=== PATIENT | female | born 1995 | race Caucasian/White ===

== ENCOUNTER 2019-10-07 10:25 | Outpatient (CLI) | payer OTHER, SELFPAY ==
[2019-10-07 10:30] VITALS: BMI 38.1
[2019-10-07 10:41] VITALS: BP 108/64; PULSE 93; RESP 17; TEMP 37.1
[2019-10-07] MEDS: acetaminophen 325 mg Tablet 650 MG PO (11:16)
[2019-10-07 11:18] VITALS: BP 106/62; PULSE 83
[2019-10-07 11:47] VITALS: BP 100/64; PULSE 76
[2019-10-07 12:17] VITALS: BP 106/64; PULSE 88
[2019-10-07 12:24] LABS: Bilirubin Urine Neg (NEGATIVE); Blood Urine Neg (Negative); Glucose Urine UA Norm (Normal); Ketones Urine Negative (Negative); Leukocyte Esterase Urine 2+ (Negative); Nitrate Urine Negative (Negative); Protein Urine Neg (Negative); Urine Appearance Hazy (CLEAR); Urine Color Yellow (Yellow); Urobilinogen Urine Norm (Negative); pH Urine 7 (5-7)
[2019-10-07 12:38] LABS: Amorphous Sediment Urine 2+; Bacteria Urine TRACE
[2019-10-07 12:39] LABS: Add Urine Culture? No
[2019-10-07 12:47] VITALS: BP 100/58; PULSE 72
[2019-10-07 13:05] VITALS: BP 100/58; PULSE 72; RESP 17; TEMP 37.1
== END 2019-10-07 13:05 | disposition home or self-care (01) ==
LOC: OPOB 10:37 → OBGYN 12:59 → OPOB 17:41
PROVIDERS: Family Provider Internal Medicine; PCP Internal Medicine; Visit Provider Obstetrics & Gynecology
DX: O26.899 Other specified pregnancy related conditions, unspecified trimester (principal); Z3A.00 Weeks of gestation of pregnancy not specified; R10.9 Unspecified abdominal pain
CPT/HCPCS: 81001; 99211

== ENCOUNTER → 2019-10-21 14:30 | Outpatient (BNVA) | payer OTHER, SELFPAY | PROVIDERS: Family Provider Internal Medicine; PCP Internal Medicine; Visit Provider Obstetrics & Gynecology | DX: Z01.89 Encounter for other specified special examinations (principal) | CPT/HCPCS: 84315 ==

== ENCOUNTER 2019-11-12 15:24 | Emergency (ER) | payer OTHER, SELFPAY ==
[2019-11-12 15:26] VITALS: BP 114/79; PULSE 93; RESP 18; TEMP 37.1; O2SAT 98; BMI 41.5
--- NOTE | 2019-11-12 15:30 | PC.NURSE ---
Patient reports that she has abdominal cramps and back pain. Patient states she has had some congestion. Patient reports that she has had some vomiting but that has occurred throughout her whole .
--- NOTE | 2019-11-12 15:32 | ED_ITS ---
Entered by Kamila Jean Baptiste, acting as scribe for Fito Cee DO HPI - General Adult General: Chief complaint: General Medical Stated complaint: cramps Time Seen by Provider: 11/12/19 15:35 History of Present Illness: HPI narrative: 24 yo female presents with cramping. Pt states that she is about 27 weeks . Comes in her primary complaint being cramping and back pain she denies any vaginal discharge she does come in with also with mild rhinorrhea and a little bit of cough cough is been nonproductive she denies any fever no dysuria urgency or frequency no nausea vomiting or diarrhea MD complaint: cramping Location: abdomen Radiation: non-radiation Severity: moderate Pain Consistency: constant Relieving factors: none Exacerbating factors: none Associated symptoms: Deny chest pain, dyspnea, malaise, nausea, rash or vomiting Review of Systems Const: Denies: fever, chills, body aches, change in appetite, fatigue or malaise ENMT: Reports: nasal discharge and nasal congestion; Denies: throat pain or ear pain Card: Denies: chest pain, edema, shortness of breath on exertion or shortness of breath when lying down Resp: Denies: shortness of breath, productive cough or non-productive cough GI: Denies: abdominal pain, nausea, vomiting, vomiting blood, coffee grounds in vomit, diarrhea, constipation, bloating, blood in stool or black tarry stool : Denies: flank pain, difficulty urinating, painful urination, urinary frequency, urinary urgency or vaginal discharge Skin/Breast: Denies: rash or itching [facility] ED PFSH: Social History (Updated 10/21/19 @ 14:39 by Cheyanne Randall RN) Smoking and tobacco status: never smoked Quit status (tobacco): has quit using tobacco Year quit tobacco: 05/2019 Former quit date comment: Cigarettes and vaping. Was smoking 1/2 packs/day. Started age 17. Smoking risk assessment/counseling performed?: Yes Alcohol intake: never Female Reproductive History: Para: 0 Spontaneous abortions: No Physical Exam Const: COMMON NORMALS: no apparent distress GENERAL APPEARANCE: cooperative and comfortable ORIENTATION/CONSCIOUSNESS: Yes awake, Yes oriented to person, Yes oriented to place and Yes oriented to time HENMT: COMMON NORMALS: normocephalic, head/scalp atraumatic, hearing grossly normal bilaterally, external ears normal, EAC's normal, TM's normal bilaterally, nasal mucous membranes and turbinates normal, moist oral mucous membranes and oropharynx normal HEAD & SCALP: normocephalic and atraumatic NOSE: nasal mucous membranes and turbinates normal EXTERNAL EAR: Yes external ears normal EXTERNAL AUDITORY CANAL: EAC's normal TYMPANIC MEMBRANE: TM's normal bilaterally Eye: COMMON NORMALS: PERRL, EOMs intact bilaterally, conjunctivae normal and no scleral icterus CONJUNCTIVA: Yes conjunctivae normal PUPIL: Yes PERRL Neck/C-Spine: COMMON NORMALS: full ROM, no lymphadenopathy, supple and no JVD Lymph: LYMPHATIC: no lymphadenopathy noted and no lymphedema noted Resp: COMMON NORMALS: normal respiratory effort, no retractions, no use of accessory muscles and clear to auscultation bilaterally AUSCULTATION: clear to auscultation bilaterally Cardio: COMMON NORMALS: no JVD, regular rate, regular rhythm and no murmurs RATE: regular rate RHYTHM: regular rhythm GI: COMMON NORMALS: soft to palpation and no hepatosplenomegaly AUSCULTATION: Yes normoactive bowel sounds PALPATION: Yes soft, No tender, No guarding and Yes no hepatosplenomegaly Extremity: COMMON NORMALS: normal to inspection, normal capillary refill, no clubbing, cyanosis or edema, no calf tenderness and no pedal edema Neuro: SENSORIUM/ORIENTATION: Yes oriented to person, Yes oriented to place and Yes oriented to time Skin: COMMON NORMALS: no rashes or lesions noted GENERAL SKIN EXAM: no rashes or lesions noted Course ED course: Patient does not have a fever her vitals are essentially normal and her exam is unremarkable. I think she may very well have a mild upper respiratory infection but has no indication that she has influenza. She is having considerable ongoing cramping and back pain at this point there is little we have to offer in the emergency room and she will be brought to the obstetrical department for evaluation. Vital Signs: Vital signs: Vital Signs Temperature 98.7 F 11/12/19 15:26 Pulse Rate 93 11/12/19 15:26 Respiratory Rate 18 11/12/19 15:26 Blood Pressure 114/79 11/12/19 15:26 Pulse Oximetry 98 11/12/19 15:26 Discharge Plan Discharge Patient Disposition: Home, Self-Care Clinical Impression: Pelvic cramping in antepartum period, Upper respiratory infection, viral, Nausea/vomiting in Condition: Stable Prescriptions: No Action prenat.vits,rosalva,[id number] Tablet 1 tab PO ONCE RF: 0 doxylamine-pyridoxine (vit B6) [Diclegis] 10-10 mg tablet,delayed release (DR/EC) 1 tab PO TID RF: 0 Pepcid 20 mg Tablet 20 mg PO DAILY RF: 0 Referrals: William Romo DO [Family Provider] - Activity Restrictions/Additional Instructions: And health information technologist will take you to the obstetrical department Coding Level of Care Code ED Structural Technician for Chg Fwd Exam Comprehensive The documentation recorded by the Markel david Kialy, accurately reflects the service I personally performed and the decisions made by , Fito Cee, DO
== END 2019-11-12 15:40 | disposition home or self-care (01) ==
LOC: ER 11-25 12:38
PROVIDERS: Emergency Provider Family Medicine; Family Provider Internal Medicine
DX: O26.892 Other specified pregnancy related conditions, second trimester (principal); R10.2 Pelvic and perineal pain; O21.2 Late vomiting of pregnancy; O99.512 Diseases of the respiratory system complicating pregnancy, second trimester; J06.9 Acute upper respiratory infection, unspecified; Z3A.27 27 weeks gestation of pregnancy; Z87.891 Personal history of nicotine dependence
CPT/HCPCS: 99281

== ENCOUNTER 2019-11-12 15:35 | Outpatient (CLI) | payer OTHER, SELFPAY ==
[2019-11-12] VITALS (9 sets, daily range): BP systolic 0–126; BP diastolic 0–77; PULSE 73–93; RESP 16; TEMP 36.8–37; O2SAT 97; BMI 34.9
[2019-11-12 17:38] LABS: Glucose Urine UA Norm (Normal); Ketones Urine 2+ (Negative); Protein Urine Neg (Negative); Urine Appearance Clear (CLEAR); Urine Color Yellow (Yellow); pH Urine 6 (5-7)
[2019-11-12 17:39] LABS: Bilirubin Urine Neg (NEGATIVE); Blood Urine Neg (Negative); Leukocyte Esterase Urine Negative (Negative); Nitrate Urine Negative (Negative); Urobilinogen Urine Norm (Negative)
[2019-11-12 17:40] LABS: Add Urine Culture? No; Bacteria Urine TRACE; Mucus Urine 2+; WBC Urine 0-4 /hpf (0-5)
[2019-11-12] MEDS: acetaminophen 500 mg Tablet 1000 MG PO (17:50)
== END 2019-11-12 18:35 | disposition home or self-care (01) ==
LOC: OPOB 16:06 → OBGYN 16:37 → OPOB 11-13 08:04
PROVIDERS: Family Provider Internal Medicine; Visit Provider Obstetrics & Gynecology
DX: O26.899 Other specified pregnancy related conditions, unspecified trimester (principal); Z3A.00 Weeks of gestation of pregnancy not specified; R10.9 Unspecified abdominal pain
CPT/HCPCS: 36415; 59025; 81001; 99211

== ENCOUNTER → 2019-11-17 15:44 | Outpatient (BNVA) | payer OTHER, SELFPAY | PROVIDERS: Family Provider Internal Medicine; Visit Provider Obstetrics & Gynecology | DX: Z34.00 Encounter for supervision of normal first pregnancy, unspecified trimester | CPT/HCPCS: 82950; 84315; 85027 ==

== ENCOUNTER → 2019-12-01 15:46 | Outpatient (BNVA) | payer OTHER, SELFPAY | PROVIDERS: Family Provider Internal Medicine; Visit Provider Obstetrics & Gynecology | DX: Z01.89 Encounter for other specified special examinations (principal) | CPT/HCPCS: 84315 ==

== ENCOUNTER → 2019-12-15 15:47 | Outpatient (BNVA) | payer OTHER, SELFPAY | PROVIDERS: Family Provider Internal Medicine; Visit Provider Obstetrics & Gynecology | DX: Z01.89 Encounter for other specified special examinations (principal) | CPT/HCPCS: 84315 ==

== ENCOUNTER → 2019-12-29 09:54 | Outpatient (BNVA) | payer OTHER, SELFPAY | PROVIDERS: Family Provider Internal Medicine; Visit Provider Obstetrics & Gynecology | DX: Z01.89 Encounter for other specified special examinations (principal) | CPT/HCPCS: 84315 ==

== ENCOUNTER → 2020-01-12 12:45 | Outpatient (BNVA) | payer OTHER, SELFPAY | PROVIDERS: Family Provider Internal Medicine; Visit Provider Obstetrics & Gynecology | DX: Z34.00 Encounter for supervision of normal first pregnancy, unspecified trimester (principal); Z34.03 Encounter for supervision of normal first pregnancy, third trimester | CPT/HCPCS: 84315; 87081 ==

== ENCOUNTER 2020-01-23 12:03 | Outpatient (CLI) | payer OTHER, SELFPAY ==
[2020-01-23] VITALS (9 sets, daily range): BP systolic 0–120; BP diastolic 0–81; PULSE 81–98; BMI 39.2
--- NOTE | 2020-01-23 12:53 | US_ITS ---
WS: [id number] US OB BPP wo NST 18910 REASON FOR EXAM: nO MOVEMENT FINDINGS: Biophysical profile is 88. Normal amounts of amniotic fluid tone movement and breathing is seen. heart rate 150 beats for minute. US/US OB BPP wo NST 51531 IMPRESSION: Biophysical profile 04/24 with a viable present.
== END 2020-01-23 14:17 | disposition home or self-care (01) ==
LOC: OPOB 12:07 → OBGYN 12:08
PROVIDERS: Family Provider Internal Medicine; Visit Provider Obstetrics & Gynecology
DX: O36.8190 Decreased fetal movements, unspecified trimester, not applicable or unspecified (principal); Z3A.00 Weeks of gestation of pregnancy not specified
CPT/HCPCS: 59025; 76819; 99211

== ENCOUNTER 2020-01-29 12:24 | Outpatient (CLI) | payer OTHER, SELFPAY ==
[2020-01-29] VITALS (9 sets, daily range): BP systolic 0–114; BP diastolic 0–75; PULSE 82–110; RESP 18; TEMP 36.8–36.9; BMI 39.1
== END 2020-01-29 15:10 | disposition home or self-care (01) ==
LOC: OPOB 12:30 → OBGYN 12:37
PROVIDERS: Visit Provider Obstetrics & Gynecology
DX: O26.899 Other specified pregnancy related conditions, unspecified trimester (principal); Z3A.00 Weeks of gestation of pregnancy not specified; R10.9 Unspecified abdominal pain
CPT/HCPCS: 59020; 99211

== ENCOUNTER 2020-02-06 17:16 | Inpatient (IN) | payer OTHER, SELFPAY ==
[2020-02-06] VITALS (61 sets, daily range): BP systolic 0–155; BP diastolic 0–96; PULSE 55–130; RESP 22; TEMP 36.4; O2SAT 80–100; BMI 39.1
[2020-02-06] MEDS: fentaNYL 50 mcg/mL INJ 2mL IV (18:32)
[2020-02-06] MEDS: lactated ringers 1,000 ML 999 ML IV (18:42)
[2020-02-06 19:06] LABS: Basophils % 0.3 %; Eosinophils % 0.3 %; Hematocrit 36.9 % (37.0-47.0); Hemoglobin 12.1 g/dL (11.5-15.3); Lymphocytes # 2.2 10^3/uL (0.8-4.8); Lymphocytes % 20.2 %; Mean Corpuscular HGB Conc 32.8 g/dL (30.0-36.0); Mean Corpuscular Hemoglobin 28.9 pg (28.0-34.0); Mean Corpuscular Volume 88.1 fL (81-99); Mean Platelet Volume 10.7 fL (7.4-10.4); Monocytes # 0.9 10^3/uL (0.2-0.9); Neutrophils # 7.7 10^3/uL (1.8-7.7); Neutrophils % 70.9 %; Nucleated Red Blood Cells % 0 %; Platelet Count 147 10^3/cmm (130-400); Red Blood Count 4.19 10^6/uL (4.1-5.3); Red Cell Distribution Width 14.5 % (12.1-15.1); White Blood Count 10.8 10^3/uL (4.0-10.0)
[2020-02-06 19:32] LABS: Nitrazine Paper, PH Positive
--- NOTE | 2020-02-06 19:57 | P.ANESASSM_ITS ---
Pre-Anesthetic Assessment Pre-Anesthetic Assessment: Height/Weight: Height 1.55 m Weight 93.894 kg Temp Pulse Resp BP 97.6 F 72 22 H 136/79 02/06/20 17:37 02/06/20 19:53 02/06/20 18:32 02/06/20 19:53 Preop Diagnosis: labor Proposed Procedure: epi Was Beta Chandrakant taken within 24 hours: N/A Last Intake: 12:00 Social: Social History: No alcohol and No tobacco Exam: Pre-Anes Outpt Exam: alert, oriented x 3, clear to auscultation bilaterally and regular rate & rhythm Airway: Submandibular: WNL Cervical ROM: WNL MP: 2 Pulmonary: Pulmonary: None reported CV/HEM: CV/HEM: None reported : : None reported Hepatic: Hepatic: None reported GI: GI: GERD Metabolic: Metabolic: None reported Musc/skel: Musc/skel: Lower Back Pain (Hx slipped disc in back back pain wit h . NO numbness or tingling) Neuropsych: Neuropsych: None reported Anesthetic Plan: ASA status: 2 Anesthesia: Anesthesia Evaluation and Regional (specify below) Meds/Allergies Current Medications: Current Medications Generic Name Dose Route Start Last Admin Trade Name Freq PRN Reason Stop Dose Admin Fentanyl 25 - 100 mcg 02/06/20 18:01 02/06/20 18:32 Sublimaze IV 25 mcg Q1H PRN Administration SEVERE PAIN Lactated Ringer's 1,000 mls @ 999 m ls/hr 02/06/20 18:01 02/06/20 18:42 Lactated Ringers IV 999 mls/hr .Q1H1M PRN Administration BLEEDING PFSH Anesthesia PFSH: Surgical History S/P arthroscopy of knee (~11/2017) Meniscal repair of the right knee S/P wisdom tooth extraction (~2012) Performed in [place], [place]. Family History Grandmother Breast cancer maternal great Hypertension maternal Father Diabetes Hypertension Grandfather Diabetes maternal Stroke maternal Heart disease paternal Hypercholesteremia maternal Family/Other Stroke maternal uncle Heart disease maternal uncle Mother Hypercholesteremia Hypertension Diabetes Social History Smoking and tobacco status: former smoker Quit status (tobacco): has quit using tobacco Year quit tobacco: 05/2019 Former quit date comment: Cigarettes and vaping. Was smoking 1/2 packs/day. Started age 17. Alcohol intake: never Female Reproductive History: : 1 Para: 0 Spontaneous abortions: No Data Anesthesia CBC & Chem 7: 02/06/20 17:55 Other Labs: Laboratory Results - last 48 hr 02/06/20 17:55 WBC 10.8 H RBC 4.19 Hgb 12.1 Hct 36.9 L MCV 88.1 MCH 28.9 MCHC 32.8 RDW 14.5 Plt Count 147 MPV 10.7 H Neut % (Auto) 70.9 Lymph % (Auto) 20.2 [place] % (Auto) 8.0 Eos % (Auto) 0.3 Baso % (Auto) 0.3 Neut # (Auto) 7.7 Lymph # (Auto) 2.2 [place] # (Auto) 0.9 Eos # (Auto) 0.0 Baso # (Auto) 0.0 Nucleated RBC % (auto) 0 Nucleated RBCs # 0.0 Cardiac Studies: No Data to Display
--- NOTE | 2020-02-06 20:33 | ANES.PROC ---
Anesthesia Procedures Procedure/Date: 02/06/20 Epidural Epidural: Time Out Performed: Yes Consents Signed: Procedure Consent and NPO Consent Consent: requested by attending/covering physician, from patient, risks and benefits reviewed and patient agrees to proceed Lumbar Level: L3-L4 Epidural position: sitting Epidural procedure: sterile prep of area (betadine), 1% lidocaine to numb the area (3ml), 18 g needle, neg for paresthesia, test dose given, 1.5% xylocaine 1:200k epi (5ml), 0.2% Ropivacaine bolus ml (5ml), placed PCEA, no systemic response, sterile dressing applied, L.U.D. no apparent complications and 0.2% Ropiavacaine @ mls/hr (10ml/hr)
[2020-02-06] MEDS: ondansetron 2 mg/ML SDV 2 mL 4 MG IVP (21:00)
[2020-02-07] VITALS (30 sets, daily range): BP systolic 0–155; BP diastolic 0–86; PULSE 59–100; RESP 16–20; TEMP 36.6–36.8; O2SAT 98
--- NOTE | 2020-02-07 04:08 | PM.DELIVERY ---
Delivery Note: Date of delivery: February 07, 2020 Pre-delivery diagnoses: 1. Term at 39-5/7 weeks gestation. 2. Anemia affecting in third trimester 3. Obesity affecting in third trimester Post-delivery diagnoses: 1. Term at 39-5/7 weeks gestation -delivered. 2. Anemia affecting - delivered 3. Obesity affecting - delivered 4. Viable male . Procedure: Spontaneous vaginal delivery Op report anesthesia: Epidural Delivering Physician: Phillip Davis MD Estimated blood loss (mL): 150 Pre-Delivery Course: Patient is a 24-year-old white female 1, para 0 with an unknown LMP and an EDC of 02/09/2020 based on a 7-week ultrasound, which placed her at 39-4/7 weeks gestation at the time of admission. Patient presented to labor and delivery at 17:15 on 02/06/2020 with a complaint of leaking fluid, spotting, and contractions. She reported that she had been having contractions off and on through the day but they had gotten stronger in the afternoon. At approximately 16:50 she reported having a gush of fluid. Contractions strengthened after that. On evaluation in L&D she was found to be grossly ruptured. Cervix was initially 90% effaced, 3 to 4 cm dilated, and a -2 station per the nurse. Patient was admitted. She continued to contract regularly and made cervical change. By 21:00 she was 5 cm dilated. She had epidural placed. At 01:40, she had progressed to 7 cm dilation. She was found to be completely dilated at 02:20. monitoring was reassuring during the labor course. Delivery: She started pushing at 02:49 and delivered at 03:11 as a spontaneous vaginal delivery of an occiput anterior male over an intact perineum under epidural anesthesia. Following delivery of the infant's head, no loops of nuchal cord were noted. The rest of the infant delivered atraumatically with the right shoulder anterior. was placed on the mother's abdomen and the cord was clamped. It was cut by the reported father of the baby. The baby was not initially crying and was taken to the warmer by the nurses for initial assessment. The baby started crying on its own but was requiring supplemental oxygen. It was transferred to the nursery. Cord blood was obtained. Pitocin bolus was started. Placenta delivered intact by simple expression at 03:29. Cervix and vagina were palpated and noted to be intact. The labia were inspected and noted to be intact except for superficial abrasions; superficial right periurethral laceration which was hemostatic and required no repair; and a first-degree midline hymenal ring laceration which was initially bleeding with the bleeding coming under control with direct pressure and did not require repair. Findings 1. Viable male infant weighing 8 pounds 6 ounces (3795 g) with a length of 20 inches and Apgars of 4 at 1 minute and 8 at 5 minutes. 2. Three-vessel cord with no loops of nuchal cord noted. 3. Normal-appearing placenta with a central cord insertion. Post-Delivery Status: Mother was left to recover in satisfactory condition. Infant was transferred to the nursery. Coding Level of Care Code Acute Interventional Sale Consultant for Jamil Hagan
[2020-02-07] MEDS: TRAMadol 50 mg Tablet PO (04:53)
[2020-02-07] MEDS: prenatal vitamin Capsule 1 CAP PO (08:55)
[2020-02-07] MEDS: famotidine 20 mg Tablet PO ×2 (08:55→18:44)
[2020-02-07] MEDS: docusate sodium 100 mg Capsule PO ×2 (08:56→18:44)
[2020-02-08] MEDS: benzocaine-menthol 78 gm Canister 1 SPRAY TOPICAL (00:05)
[2020-02-08 03:30] VITALS: BP 109/69; PULSE 78; RESP 18; TEMP 36.8; O2SAT 98
[2020-02-08 06:34] LABS: Hematocrit 35.5 % (37.0-47.0); Hemoglobin 10.8 g/dL (11.5-15.3); Mean Corpuscular HGB Conc 30.4 g/dL (30.0-36.0); Mean Corpuscular Hemoglobin 29.9 pg (28.0-34.0); Mean Corpuscular Volume 98.3 fL (81-99); Mean Platelet Volume 11.1 fL (7.4-10.4); Platelet Count 135 10^3/cmm (130-400); Red Blood Count 3.61 10^6/uL (4.1-5.3); Red Cell Distribution Width 14.9 % (12.1-15.1); White Blood Count 13.5 10^3/uL (4.0-10.0)
[2020-02-08] MEDS: docusate sodium 100 mg Capsule PO (08:05)
[2020-02-08] MEDS: famotidine 20 mg Tablet PO (08:05)
[2020-02-08] MEDS: prenatal vitamin Capsule 1 CAP PO (08:05)
--- NOTE | 2020-02-08 11:04 | PM.DCS ---
Discharge Providers Date of Admission: 02/06/20 17:16 Date of Discharge: February 08, 2020 Attending Provider at Admission: Phillip Davis MD Attending Provider at Discharge: Phillip Davis MD Diagnoses at Discharge Discharge Diagnosis (1) Term delivered: Status: Acute (2) Anemia during , delivered, current hospitalization: Status: Acute Reason for Visit Reason for Visit: Reason For Visit: vaginal discharge Hospital Course Hospital Course: Patient is a 24-year-old white female 1, para 0 with an unknown LMP and an EDC of 02/09/2020 based on a 7-week ultrasound, which placed her at 39-4/7 weeks gestation at the time of admission. She presented to L&D on 02/06/2020 at 1715 with a complaint of leaking of fluid, spotting, and contractions. She reported having a gush of fluid at 16:50. She had been having contractions prior to this but they worsened afterwards. On presentation to L&D she was noted to be grossly ruptured and was michael regularly. She was 3 to 4 cm dilated and 90% effaced. She continued to progress on her own and had epidural placed. She was found to be completely dilated at 02:20 on 02/08/2020. She started pushing at 02:49 and delivered at 03:11 as a spontaneous vaginal delivery of an occiput anterior male infant over an intact perineum under epidural anesthesia. The baby weighed 8 pounds 6 ounces (3795 g) with a length of 20 inches and Apgars of 4 at 1 minute and 8 at 5 minutes. She did not require any vaginal repair. Mother and infant did well following delivery. DAY 1 Patient reports doing well. She states that her pain is been well controlled. She denied any lightheadedness or dizziness with ambulation. She denied any shortness of breath or chest pains. She reports tolerating a regular diet without nausea or vomiting. She denies any problems with urination. She states that her bleeding has slowed. She states that she has a mild headache that started after delivery. She states it is not interfering with getting up out of bed and moving around. It is better, however, when she lies down. Physical Exam: See below Plan: Discussed with patient increasing caffeine and fluid intake. Even though the headache is mildly position related I do not believe from what she is describing that is likely to be a spinal headache. However the caffeine and fluid intake should help anyway. Since patient is otherwise doing well, plan to discharge to home today. Discharge instructions discussed with patient. Patient is to call the office to schedule a checkup in approximately 6 weeks. Physical Exam Const: COMMON NORMALS: no acute distress, average body habitus, alert and well nourished GENERAL APPEARANCE: well developed ORIENTATION/CONSCIOUSNESS: Yes oriented to person, Yes oriented to place and Yes oriented to time Resp: COMMON NORMALS: normal respiratory effort and clear to auscultation bilaterally AUSCULTATION: clear to auscultation bilaterally Cardio: COMMON NORMALS: regular rate, regular rhythm, No gallops present (Cardio) and No rub (Cardio) RATE: regular rate RHYTHM: regular rhythm GI: COMMON NORMALS: Soft to palpation, non-tender, No hepatosplenomegaly present and no masses (Except for nontender uterus approximately 2 fingerbreadths below the umbilicus) AUSCULTATION: Yes normoactive bowel sounds PALPATION: Yes Soft to palpation, Yes No hepatosplenomegaly present and No Hernia present : EXTERNAL FEMALE EXAM: No Hernia present Extremity: COMMON NORMALS: no calf tenderness GENERAL: Yes edema (Trace lower extremity edema.) Neuro: SENSORIUM/ORIENTATION: Yes alert, Yes oriented to person, Yes oriented to place and Yes oriented to time Psych: COMMON NORMALS: normal affect MOOD & AFFECT: Yes euthymic mood Discharge Data Data Completed and Pending: Labs from last 24 hours 02/08/20 06:25 WBC 13.5 H RBC 3.61 L Hgb 10.8 L Hct 35.5 L MCV 98.3 MCH 29.9 MCHC 30.4 RDW 14.9 Plt Count 135 MPV 11.1 H Vitals: Last Vital Signs Temp 98.2 F 02/08/20 03:30 Pulse 78 02/08/20 03:30 Resp 18 02/08/20 03:30 BP 109/69 02/08/20 03:30 Pulse Ox 98 02/08/20 03:30 Discharge Plan Discharge Patient Disposition: Home, Self-Care Condition: Stable Prescriptions: New ibuprofen 800 mg Tablet 800 mg PO TID PRN (Reason: pain) Qty: 30 RF: 0 Continued folic acid 0.8 mg capsule 0.8 mg PO DAILY RF: 0 ferrous sulfate 325 mg (65 mg iron) tablet 325 mg PO DAILY Qty: 30 RF: 4 Discontinued famotidine [Pepcid] 20 mg Tablet 20 mg PO BID RF: 0 Discharge Orders: Discharge Order (Routine); Ordered 02/08/20 Ordered By: Phillip Davis Referrals: Phillip Davis MD [Physician] - 6 Weeks Discharge Diet: Regular Discharge Activity: Resume usual activity Patient Instructions: OB Vaginal Deliveries - [facility] Discharge Attestations Time Spent in Discharge Care*: less than 30 min Quality Metrics Clinical Quality Measures During this hospital stay, did patient experience: None Coding Level of Care Code Acute Project Management Professional for Chg Fwd Diagnoses Term delivered O80 Anemia during , delivered, current hospitalization O99.02
[2020-02-08 15:00] VITALS: BP 108/71; PULSE 88; RESP 18; TEMP 36.8; O2SAT 97
== END 2020-02-08 15:00 | disposition home or self-care (01) | DRG 807 ==
LOC: OPOB 17:34 → OBGYN 17:36
PROVIDERS: Admitting Provider Obstetrics & Gynecology; Visit Provider Obstetrics & Gynecology
DX: O99.02 Anemia complicating childbirth (principal); Z37.0 Single live birth; D64.9 Anemia, unspecified; Z3A.39 39 weeks gestation of pregnancy; O99.214 Obesity complicating childbirth; O70.0 First degree perineal laceration during delivery
CPT/HCPCS: 12345; 36415; 51702; 59025; 59409; 83986; 85025; 85027; 96374; 96375; 99211; J2405; J3010

== ENCOUNTER → 2020-11-17 14:02 | Outpatient (BNVA) | payer OTHER, MEDICAID, SELFPAY | PROVIDERS: Visit Provider Obstetrics & Gynecology | DX: O26.899 Other specified pregnancy related conditions, unspecified trimester (principal); R35.0 Frequency of micturition | CPT/HCPCS: 81000; 82950; 87086 ==

== ENCOUNTER → 2020-12-29 14:22 | Outpatient (BNVA) | payer OTHER, MEDICAID, SELFPAY | PROVIDERS: Visit Provider Obstetrics & Gynecology | DX: O99.212 Obesity complicating pregnancy, second trimester (principal); O44.20 Partial placenta previa NOS or without hemorrhage, unspecified trimester; O09.899 Supervision of other high risk pregnancies, unspecified trimester; K21.9 Gastro-esophageal reflux disease without esophagitis; L08.9 Local infection of the skin and subcutaneous tissue, unspecified; Z78.9 Other specified health status | CPT/HCPCS: 84315; 87086 ==

== ENCOUNTER → 2021-01-26 09:11 | Outpatient (BNVA) | payer OTHER, MEDICAID, SELFPAY | PROVIDERS: Visit Provider Obstetrics & Gynecology | DX: O44.20 Partial placenta previa NOS or without hemorrhage, unspecified trimester (principal); O99.212 Obesity complicating pregnancy, second trimester; E66.9 Obesity, unspecified; O09.899 Supervision of other high risk pregnancies, unspecified trimester; K21.9 Gastro-esophageal reflux disease without esophagitis; L08.9 Local infection of the skin and subcutaneous tissue, unspecified; Z78.9 Other specified health status; Z3A.00 Weeks of gestation of pregnancy not specified | CPT/HCPCS: 82950; 84315; 85025; 86762 ==

== ENCOUNTER 2021-03-23 05:37 | Outpatient (CLI) | payer OTHER, MEDICAID, SELFPAY ==
[2021-03-23 05:48] VITALS: BP 117/70; PULSE 116; TEMP 36.2
[2021-03-23 06:26] VITALS: TEMP 36.7
[2021-03-23 06:27] VITALS: BP 103/67; PULSE 93
== END 2021-03-23 06:30 | disposition home or self-care (01) ==
LOC: OPOB 05:41 → OBGYN 05:43
PROVIDERS: Visit Provider Obstetrics & Gynecology
DX: O26.899 Other specified pregnancy related conditions, unspecified trimester (principal); Z3A.00 Weeks of gestation of pregnancy not specified; R10.9 Unspecified abdominal pain
CPT/HCPCS: 59025; 83986; 99211

== ENCOUNTER → 2021-03-28 15:49 | Outpatient (BNVA) | payer OTHER, MEDICAID, SELFPAY | PROVIDERS: Visit Provider Obstetrics & Gynecology | DX: Z34.90 Encounter for supervision of normal pregnancy, unspecified, unspecified trimester (principal); K21.9 Gastro-esophageal reflux disease without esophagitis; Z78.9 Other specified health status; L08.9 Local infection of the skin and subcutaneous tissue, unspecified; R12 Heartburn | CPT/HCPCS: 84315; 87081 ==

== ENCOUNTER 2021-04-05 03:39 | Outpatient (CLI) | payer OTHER, MEDICAID, SELFPAY ==
[2021-04-05 04:18] VITALS: BMI 38.4
[2021-04-05 04:23] VITALS: BP 104/65; PULSE 100
--- NOTE | 2021-04-05 07:48 | P.PCN_ITS ---
Procedure/Consent Procedure Narrative: NONSTRESS TEST: Place of test: [facility]-L&D Indication: 25-year-old 2 para 1-0-0-1, contraction and vaginal discharge Date and time of test:, 04/05/2021-4:30 AM Baseline: 135 Variability: Moderate variability Accelerations: Accelerations present Decelerations: No decelerations Tocometry: No contractions INTERPRETATION: NST reactive, continue kick counts
== END 2021-04-05 04:55 | disposition home or self-care (01) ==
LOC: OPOB 04:02 → OBGYN 04:03
PROVIDERS: Visit Provider Obstetrics & Gynecology
DX: O26.899 Other specified pregnancy related conditions, unspecified trimester (principal); Z3A.00 Weeks of gestation of pregnancy not specified; N89.8 Other specified noninflammatory disorders of vagina
CPT/HCPCS: 59025; 83986; 99211

== ENCOUNTER 2021-04-05 08:47 | Inpatient (IN) | payer OTHER, MEDICAID, SELFPAY ==
[2021-04-05] VITALS (35 sets, daily range): BP systolic 97–144; BP diastolic 53–86; PULSE 63–100; RESP 17; TEMP 36.4–36.6; O2SAT 100
[2021-04-05 08:32] LABS: Nitrazine Paper, PH Inconclusive
[2021-04-05 08:34] LABS: Actim Prom Positive
[2021-04-05 10:20] LABS: Basophils # 0.1 10^3/uL (0.0-0.1); Basophils % 0.5 %; Eosinophils % 0.2 %; Hematocrit 35.6 % (37.0-47.0); Hemoglobin 11.3 g/dL (11.5-15.3); Lymphocytes # 2.6 10^3/uL (0.8-4.8); Lymphocytes % 23.6 %; Mean Corpuscular HGB Conc 31.7 g/dL (30.0-36.0); Mean Corpuscular Hemoglobin 28.3 pg (28.0-34.0); Mean Corpuscular Volume 89.2 fL (81-99); Mean Platelet Volume 10.3 fL (7.4-10.4); Monocytes % 8.8 %; Neutrophils # 7.27 10^3/uL (1.8-7.7); Neutrophils % 66.5 %; Nucleated Red Blood Cells % 0 %; Platelet Count 162 10^3/cmm (130-400); Red Blood Count 3.99 10^6/uL (4.1-5.3); Red Cell Distribution Width 14.1 % (12.1-15.1); White Blood Count 10.9 10^3/uL (4.0-10.0)
[2021-04-05] MEDS: fentaNYL 50 mcg/mL INJ 2mL IVP (10:25)
[2021-04-05] MEDS: dextrose 5%-lactated ringers 1,000 ML 125 ML IV (12:33)
[2021-04-05] MEDS: oxytocin 30 UNIT/500 ML BAG IV (12:34)
[2021-04-05] MEDS: lactated ringers 1,000 ML 999 ML IV ×2 (13:00→14:02)
[2021-04-05] MEDS: ondansetron 2 mg/ML SDV 2 mL 4 MG IVP (13:50)
--- NOTE | 2021-04-05 14:40 | P.ANESASSM_ITS ---
Pre-Anesthetic Assessment Pre-Anesthetic Assessment: Height/Weight: Height 1.57 m Weight 98.883 kg Temp Pulse Resp BP Pulse Ox 97.5 F L 86 17 115/78 100 04/05/21 07:32 04/05/21 14:20 04/05/21 12:21 04/05/21 13:28 04/05/21 14:20 Preop Diagnosis: labor Proposed Procedure: epidural Familial anesthetic complications: none Last intake: ice chips Social: Social History: No alcohol and No tobacco Exam: Pre-Anes Outpt Exam: alert, oriented x 3, clear to auscultation bilaterally and regular rate & rhythm Airway: Cervical ROM: WNL MP: 2 Dentition: Full GI: GI: GERD Metabolic: Metabolic: Morbid obesity Anesthetic Plan: ASA status: 2 Anesthesia: Regional (specify below) (epidu ral) Risk of > 500 ml blood loss (7ml/kg in children): Yes, adequate IV acces s and fluids planned Other Pertinent Information: partial placenta previa Meds/Allergies Current Medications: Current Medications Generic Name Dose Route Start Last Admin Trade Name Joelq PRN Reason Stop Dose Admin Fentanyl 25 - 100 mcg 04/05/21 09:47 04/05/21 10:25 Fentanyl 50 Mcg/ Ml Inj 2ml IVP 50 mcg Q1H PRN Administration SEVERE PAIN Dextrose/Lactated Ringer's 1,000 mls @ 125 m ls/hr 04/05/21 08:45 04/05/21 12:33 Dextrose 5%-Lact ated Ringers IV 125 mls/hr .Q8H BRITTNI Administration Oxytocin 30 unit in 500 ml s @ 1 mls/hr 04/05/21 12:15 04/05/21 12:34 Pitocin IV 1 milliunit/min .Q24H RBITTNI 1 mls/hr Administration Protocol 1 MILLIUNIT/MIN Ondansetron HCl 4 mg 04/05/21 08:45 04/05/21 13:50 Ondansetron 2 Mg /Ml Sdv 2 Ml IVP 4 mg Q4H PRN Administration NAUSEA AND VOMITI NG PFSH Anesthesia PFSH: Medical History Blood type A+ No pertinent past medical history neghx:htn,dm,thyroid,dvt/pe,herpes Denies past partner herpes hx PCP: none Obesity Skin infection Surgical History S/P arthroscopy of knee (~11/2017) Meniscal repair of the right knee S/P wisdom tooth extraction (~2012) Performed in [place], [place]. Family History Grandmother Breast cancer maternal great Hypertension maternal Father Diabetes Hypertension Grandfather Diabetes maternal Stroke maternal Heart disease paternal Hypercholesteremia maternal Family/Other Stroke maternal uncle Heart disease maternal uncle Mother Hypercholesteremia Hypertension Diabetes Social History Smoking and tobacco status: never smoked Alcohol intake: never Female Reproductive History: : 2 Para: 0 Spontaneous abortions: No Data Anesthesia CBC & Chem 7: 04/05/21 09:49 Other Labs: Laboratory Results - last 48 hr 04/05/21 04/05/21 08:10 09:49 WBC 10.9 H RBC 3.99 L Hgb 11.3 L Hct 35.6 L MCV 89.2 MCH 28.3 MCHC 31.7 RDW 14.1 Plt Count 162 MPV 10.3 Neut % (Auto) 66.5 Lymph % (Auto) 23.6 [place] % (Auto) 8.8 Eos % (Auto) 0.2 Baso % (Auto) 0.5 Neut # (Auto) 7.27 Lymph # (Auto) 2.6 [place] # (Auto) 1.0 H Eos # (Auto) 0.0 Baso # (Auto) 0.1 Nucleated RBC % (auto) 0 Nucleated RBCs # 0.0 Insulin-like GF I Positive Cardiac Studies: No Data to Display Anesthesia Procedures Epidural: Time Out Performed: Yes Consents Signed: Procedure Consent, NPO Consent and No Consent Needed Consent: requested by attending/covering physician, from patient, risks and benefits reviewed and patient agrees to proceed Lumbar Level: L3-L4 Epidural position: sitting Epidural procedure: sterile prep of area, 1% lidocaine to numb the area, 18 g needle, negative for paresthesia passed, neg for paresthesia, test dose given, 1.5% xylocaine 1:200k epi (5 cc divide dose), 0.2% Ropivacaine bolus ml (5 cc), placed PCEA, no systemic response, sterile dressing applied, L.U.D. no apparent complications and 0.2% Ropiavacaine @ mls/hr (10) Additional Comments: Bleeding GREGORIO at 5.5 cm, threaded to 12 cm
--- NOTE | 2021-04-05 16:05 | PC.NURSE ---
Pt stated to Can I AMA out due to not having childcare for other child at home.
--- NOTE | 2021-04-05 16:09 | PM.DELIVERY ---
Delivery Note: Date of delivery: April 05, 2021 - PRE-DELIVERY DIAGNOSIS: 25-year-old 2 para 1-0-0-1 at 38 weeks and 1 day gestation Early labor, spontaneous rupture of membranes Protracted labor GBS negative Covid unknown Acid reflux in POST-DELIVERY DIAGNOSIS: Vaginal delivery on 04/05/2021 PROCEDURE: Vaginal delivery on 04/05/2021 ANESTHESIA: Epidural anesthesia DELIVERING PHYSICIAN: Veda Ford FACOG PRE-DELIVERY COURSE: Ms. Phillip is a 35-year-old 2 para 1-0-0-1 at 38 weeks and 1 day who presented to labor and delivery at 3 AM with reports of possible leaking of fluid. Exam done at that time showed that she was 3 cm, 60% and -3 station with intact membranes and nitrazine was negative. She was discharged home. She states that at 6 AM she felt a bigger gush of fluid and felt for sure her water was broken and returned back for evaluation. Her exam was more wet and no membranes were identified at this exam and nitrazine was inconclusive but active problems positive and as a result she was admitted to labor and delivery. She also reported having contractions every 4 to 5 minutes that were starting to get more painful. On initial evaluation she was 3 cm 60% and -3 station unchanged from earlier that evening however on observation she made cervical change and was 4 to 5 cm 2 to 3 hours later. She then made no further cervical change person 2 more hours and was started on Pitocin for augmentation of labor as her contractions spaced out to every 5 to 6 cm. Pitocin was titrated to a maximum of 7 mIU and with this she grew uncomfortable and desired an epidural. She was GBS negative and as she was Covid negative she was Covid swab. She was given IV pain medication until she had an epidural. She was pretty uncomfortable and at about 2 PM was noted to be 6 cm, 70 to 80% and -2 station. Internal monitor was placed as patient was unable to stay still for external monitoring. Epidural was placed shortly after this and she was a lot more comfortable. tracing was category 1 and she made rapid cervical change after this and was fully dilated at 3:34 PM and had the urge to push. tracing started to show deep variables once she was fully dilated and she was making rapid descent of the head. DELIVERY NOTE: She was set up in lithotomy position and was pushing effectively. She was noted to be +3 station and continued pushing well. The head delivered in JOSUE position, no nuchal cord was present. The shoulders and rest of the body followed with her next push. The baby's mouth and nose were suctioned and the baby was placed on the mother's belly. Once cord pulsations stopped the cord was clamped and cut. The placenta delivered spontaneously intact with membranes and was discarded. The fundus was noted to be firm and well contracted. The vagina and cervix were inspected and no cervical or sulcal lacerations were noted. The perineum was intact. Small superficial abrasion which was hemostatic and did not need repair. Baby boy, Jason born at 3:49 PM on 04[birth year]2021 with 9/9, weighing 6 pounds 14 ounces, 3110 g, 19-1/4 inches long. Placenta was delivered spontaneously intact with membranes at 3:53 PM. Cotyledons were intact , centrally inserted umbilical cord with 3 vessels noted. Estimated blood loss 150 mL. Complications-none, both baby and mother were left to recover in a stable condition This documentation was created by [employer] bridge maintenance worker software (known for inherent bridge maintenance worker error). Every effort was made to assure accuracy of bridge maintenance worker. Any obvious errors or omissions should be clarified with the author of the document. Coding Level of Care Code Acute Property Insurance Inspector for Jamil Hagan
--- NOTE | 2021-04-05 17:30 | PC.NURSE ---
this technical writer and editor asked Did I hear you ask if you may AMA out of here? , pt replied I don't have child nurse for my other child at home. We don't have anyone to watch him. This nurse educated pt of bleeding precautions such as a sudden gush of blood down both legs to return to ER immediately, then proceeded to educate pt of blood clots bigger than a golf ball return to ER immediately. Pt stated I will do that if that happens.
[2021-04-05] MEDS: docusate sodium 100 mg Capsule PO (18:43)
--- NOTE | 2021-04-05 20:40 | PC.NURSE ---
Advised Patient to call [facility] to schedule 6 week follow-up appointment tomorrow with Dr Ford.
[2021-04-06 14:07] LABS: Coronavirus Test Green County Not Detected
== END 2021-04-05 20:40 | disposition left against medical advice (07) | DRG 807 ==
LOC: OPOB 08:47 → OBGYN 08:47
PROVIDERS: Admitting Provider Obstetrics & Gynecology; Visit Provider Obstetrics & Gynecology
DX: O99.62 Diseases of the digestive system complicating childbirth (principal); Z37.0 Single live birth; K21.9 Gastro-esophageal reflux disease without esophagitis; O99.214 Obesity complicating childbirth; E66.01 Morbid (severe) obesity due to excess calories; Z3A.38 38 weeks gestation of pregnancy; Z53.29 Procedure and treatment not carried out because of patient's decision for other reasons
CPT/HCPCS: 36415; 59025; 59409; 83986; 84112; 85025; 87635; 96374; 96375; 99211; J2405; J2795; J3010

== ENCOUNTER → 2021-06-24 14:04 | Outpatient (BNVA) | payer OTHER, MEDICAID, SELFPAY | PROVIDERS: Visit Provider Obstetrics & Gynecology | DX: N89.8 Other specified noninflammatory disorders of vagina (principal) | CPT/HCPCS: 87481; 87512; 87798; 87799 ==

== ENCOUNTER → 2022-08-04 16:05 | Outpatient (BNVA) | payer OTHER, BC, MEDICAID, SELFPAY | PROVIDERS: Visit Provider Emergency Medicine | DX: J02.9 Acute pharyngitis, unspecified (principal) | CPT/HCPCS: 87071; 87880 ==

== ENCOUNTER → 2023-07-31 12:46 | Outpatient (BNVA) | payer OTHER, SELFPAY | PROVIDERS: Visit Provider Registered Nurse Neonatal Intensive Care | DX: J02.9 Acute pharyngitis, unspecified (principal) | CPT/HCPCS: 87880 ==

== ENCOUNTER → 2023-10-25 13:28 | Outpatient (BNVA) | payer OTHER, SELFPAY | PROVIDERS: Visit Provider Nurse Practitioner Women's Health | DX: Z32.00 Encounter for pregnancy test, result unknown (principal) | CPT/HCPCS: 81025 ==

== ENCOUNTER → 2023-10-30 12:29 | Outpatient (BNVA) | payer OTHER, SELFPAY | PROVIDERS: Visit Provider Nurse Practitioner Women's Health | DX: Z36.87 Encounter for antenatal screening for uncertain dates (principal); N83.291 Other ovarian cyst, right side | CPT/HCPCS: 76801 ==

== ENCOUNTER → 2023-11-03 18:20 | Outpatient (BNVA) | payer OTHER, SELFPAY | PROVIDERS: Visit Provider Emergency Medicine | DX: R11.2 Nausea with vomiting, unspecified (principal) | CPT/HCPCS: 87400 ==

== ENCOUNTER 2023-11-05 09:08 | Emergency (ER) | payer OTHER, SELFPAY ==
[2023-11-05 09:27] VITALS: BP 106/75; PULSE 102; RESP 16; TEMP 36.7; O2SAT 99; BMI 38.4
--- NOTE | 2023-11-05 10:06 | W.ED.NAVMDI ---
HPI - Nausea/Vomiting/Diarrhea General: Chief complaint: Nausea/Vomiting/Diarrhea Stated complaint: 10 weeks preg, n,v,bathroom trouble Time Seen by Provider: 11/05/23 09:42 Source: patient Mode of arrival: ambulatory Limitations: no limitations History of Present Illness: Patient is a 28-year-old female approximately 10 weeks here for complaints of nausea and vomiting x 3 days. Patient states the stomach bug has been going around her house with both of her young kids and has been sick with vomiting and diarrhea. She states prior to this that she had minimal nausea and vomiting associated with the thus feels her symptoms today most likely are secondary to the stomach bug. She is not having any diarrhea. She is having some abdominal cramping and pain usually after vomiting. She is not having any vaginal bleeding. She has had an ultrasound through Dr. Thapa/OB that confirmed an intrauterine . She is not running fevers. She feels like she is getting dehydrated secondary to the nausea and vomiting and feels lightheaded. She has also had some urinary urgency and frequency with dribbling. MD elicited complaint: nausea and vomiting Onset (ago): day(s) Associated nausea: Yes Associated abdominal pain: Yes Location of pain: Diffuse Pain consistency: intermittent Severity: moderate Quality: cramping Exacerbating factors: eating Relieving factors: none Context: sick contacts (two kids and with N/V/D) Associated symtoms: Reports nausea; Denies chest pain, dysuria, fatigue, headache(s) or malaise Review of Systems Const: Denies: fever(s), chills, body aches, fatigue or malaise Card: Denies: chest pain Resp: Denies: dyspnea GI: Reports: abdominal pain, nausea, vomiting and GI cramping; Denies: hematemesis, diarrhea, constipation, change in bowel habits, hematochezia or melena : Reports: urinary urgency and dribbling; Denies: flank pain, dysuria, hematuria, vaginal bleeding, vaginal discharge or pelvic pain Musc: Denies: back pain Neuro: Denies: headache(s) PFSH ED PFSH: Medical History Skin infection No pertinent past medical history neghx:htn,dm,thyroid,dvt/pe,herpes Denies past partner herpes hx PCP: none Obesity Blood type A+ Surgical History S/P wisdom tooth extraction (~2012) Performed in [place], [place]. S/P arthroscopy of knee (~11/2017) Meniscal repair of the right knee Family History Grandmother Breast cancer maternal great Hypertension maternal Father Diabetes Hypertension Grandfather Diabetes maternal Stroke maternal Heart disease paternal Hypercholesteremia maternal Family/Other Stroke maternal uncle Heart disease maternal uncle Mother Hypercholesteremia Hypertension Diabetes Female Reproductive History: Para: 0 Spontaneous abortions: No Physical Exam Const: COMMON NORMALS: no acute distress, patient oriented x3, no limitations, alert and well nourished GENERAL APPEARANCE: cooperative NUTRITIONAL APPEARANCE: obese ORIENTATION/CONSCIOUSNESS: Yes awake, Yes oriented to person, Yes oriented to place and Yes oriented to time Eye: COMMON NORMALS: no scleral icterus Neck/C-Spine: COMMON NORMALS: no lymphadenopathy Resp: COMMON NORMALS: normal respiratory effort and clear to auscultation bilaterally AUSCULTATION: clear to auscultation bilaterally Cardio: COMMON NORMALS: regular rate and regular rhythm RATE: regular rate RHYTHM: regular rhythm GI: COMMON NORMALS: Normal to inspection, nondistended, normoactive bowel sounds present, Soft to palpation, No hepatosplenomegaly present and no masses INSPECTION: Yes normal to inspection AUSCULTATION: Yes normoactive bowel sounds PALPATION: Yes Soft to palpation, Yes Tenderness to palpation present (GI) (reports mild generalized tenderness-non surgical exam), No Guarding due to palpation present (GI), No Rigid due to palpation and Yes No hepatosplenomegaly present : COMMON NORMALS: Yes no CVA tenderness BLADDER/KIDNEY EXAM: Yes no CVA tenderness Back/Pelvis: COMMON NORMALS: no CVA tenderness Extremity: GENERAL: Yes normal exam except as noted Neuro: LIZZY COMA SCALE: document GCS findings [place] coma scale eye opening: Spontaneous [place] coma scale verbal response: Orientated Lizzy coma scale motor response: Obey commands [place] coma scale total score: 15 COMMON NORMALS: patient oriented x3 SENSORIUM/ORIENTATION: Yes alert, Yes oriented to person, Yes oriented to place and Yes oriented to time Course Vital Signs: Vital signs: Vital Signs Temperature 98.1 F 11/05/23 09:27 Pulse Rate 102 H 11/05/23 09:27 Respiratory Rate 16 11/05/23 09:27 Blood Pressure 106/75 11/05/23 09:27 Pulse Oximetry 99 11/05/23 09:27 Oxygen Delivery Me thod Room Air 11/05/23 09:27 MDM - Nausea/Vomiting/Diarrhea Medical Decision Making Patient here for nausea and vomiting most likely related to a gastroenteritis as both of her kids as well as her are sick with similar symptoms. Patient feeling significantly better after IV Reglan and fluids. She does not want to finish fluids here and wants to go home. She states she is feeling hungry and wants to go home and eat. Vital signs are stable. Blood work overall is unremarkable. UA is grossly contaminated however she does have blood, leuks, WBCs, and bacteria. She is symptomatic so we will go ahead and place her on Augmentin. Strict return ED precautions given. She is requesting a prescription for the Reglan. Lab Data 11/05/23 10:31 11/05/23 10:31 Laboratory Results WBC 8.98 10^3/uL (3.29-11.43) 11/05/23 10:31 RBC 4.56 10^6/uL (3.85-5.65) 11/05/23 10:31 Hgb 13.90 g/dL (11.27-16.99) 11/05/23 10:31 Hct 41.0 % (36-47) 11/05/23 10:31 MCV 89.9 fl (85-98) 11/05/23 10:31 MCH 30.5 pg (27-33) 11/05/23 10:31 MCHC 33.9 g/dL (30-55) 11/05/23 10:31 RDW 11.9 % (12.1-15.1) L 11/05/23 10:31 Plt Count 167 10^3/cmm (157-399) 11/05/23 10:31 MPV 9.0 fL (7.4-10.4) 11/05/23 10:31 Neut % (Auto) 68.6 % 11/05/23 10:31 Lymph % (Auto) 22.8 % 11/05/23 10:31 [place] % (Auto) 7.9 % 11/05/23 10:31 Eos % (Auto) 0.2 % 11/05/23 10:31 Baso % (Auto) 0.3 % 11/05/23 10:31 Neut # (Auto) 6.15 10^3/uL (1.8-7.7) 11/05/23 10:31 Lymph # (Auto) 2.1 10^3/uL (0.8-4.8) 11/05/23 10:31 [place] # (Auto) 0.7 10^3/uL (0.2-0.9) 11/05/23 10:31 Eos # (Auto) 0.0 10^3/uL (0.0-0.8) 11/05/23 10:31 Baso # (Auto) 0.0 10^3/uL (0.0-0.1) 11/05/23 10:31 Nucleated RBC % (auto) 0 % 11/05/23 10:31 Nucleated RBCs # 0.0 /100WBC 11/05/23 10:31 Sodium 133 mmol/L (136-145) L 11/05/23 10:31 Potassium 3.5 mmol/L (3.5-5.1) 11/05/23 10:31 Chloride 99 mmol/L (98-107) 11/05/23 10:31 Carbon Dioxide 22 mmol/L (22-29) 11/05/23 10:31 Anion Gap 15.5 (5-19) 11/05/23 10:31 BUN 6 mg/dL (6-20) 11/05/23 10:31 Creatinine 0.5 mg/dL (0.5-0.9) 11/05/23 10:31 GFR Calculation 146.9 mL/min (90-130) H 11/05/23 10:31 Glucose 90 mg/dL (65-115) 11/05/23 10:31 Calculated Osmolality 273 mOsm/kg (285-295) L 11/05/23 10:31 Calcium 9.1 mg/dL (8.5-10.5) 11/05/23 10:31 Total Bilirubin 0.2 mg/dL (0.15-1.2) 11/05/23 10:31 AST 15 U/L (0-32) 11/05/23 10:31 ALT 11 U/L (0-33) 11/05/23 10:31 Alkaline Phosphatase 70 U/L (35-105) 11/05/23 10:31 Total Protein 7.6 g/dL (6.6-8.7) 11/05/23 10:31 Albumin 3.9 g/dL (3.5-5.2) 11/05/23 10:31 Globulin 3.7 g/dL (1.3-4.6) 11/05/23 10:31 Urine Color Paty (Yellow) 11/05/23 11:32 Urine Appearance Sl hazy (CLEAR) A 11/05/23 11:32 Urine pH 6.5 (5-7) 11/05/23 11:32 Ur Specific [place] 1.015 (1.005-1.030) 11/05/23 11:32 Urine Protein 1+ (Negative) H 11/05/23 11:32 Urine Glucose (UA) Norm (Normal) 11/05/23 11:32 Urine Ketones 3+ (Negative) H 11/05/23 11:32 Urine Blood 2+ (Negative) H 11/05/23 11:32 Urine Nitrate Negative (Negative) 11/05/23 11:32 Urine Bilirubin 1+ (Negative) H 11/05/23 11:32 Urine Urobilinogen Norm mg/dL (Negative) 11/05/23 11:32 Ur Leukocyte Esterase 1+ (Negative) H 11/05/23 11:32 Urine RBC 5-10 /hpf (0-2) H 11/05/23 11:32 Urine WBC 15-25 /hpf (0-5) H 11/05/23 11:32 Ur Squamous Epith Cells 25-40 /hpf (0-5) H 11/05/23 11:32 Amorphous Sediment Not Reportable 11/05/23 11:32 Urine Bacteria 1+ /hpf (NONE) H 11/05/23 11:32 Urine Mucus 4+ /hpf 11/05/23 11:32 No radiology studies performed this visit Discharge Plan Discharge Patient Disposition: Home Clinical Impression: Gastroenteritis Urinary tract infection during Qualifiers: Trimester: first trimester Qualified Code(s): O23.41 - Unspecified infection of urinary tract in , first trimester Condition: Stable Prescriptions: New amoxicillin-pot clavulanate 875-125 mg tablet 1 tab PO BID Qty: 14 0RF Continued metoclopramide HCl [Reglan] 10 mg tablet 10 mg PO Q6H PRN (Reason: nausea and vomiting) Qty: 10 0RF No Action Gummies 400 mcg-35 mg- 25 mg-5 mg tablet,chewable 1 tab PO DAILY ondansetron HCl 8 mg tablet 8 mg PO TID PRN (Reason: nausea and vomiting) Qty: 20 0RF ondansetron HCl 4 mg tablet 4 mg PO Q8H PRN (Reason: nausea and vomiting) Qty: 30 2RF Discharge Orders: Discharge ED (Routine); Ordered 11/05/23 Ordered By: Rachel Hurley Coding Level of Care Code ED It Support Consultant for Jamil Hagan
[2023-11-05] MEDS: sodium chloride 0.9% 1,000 ML 999 ML IV (10:40)
[2023-11-05 10:42] LABS: Basophils % 0.3 %; Eosinophils % 0.2 %; Lymphocytes # 2.1 10^3/uL (0.8-4.8); Lymphocytes % 22.8 %; Mean Corpuscular HGB Conc 33.9 g/dL (30-55); Mean Corpuscular Hemoglobin 30.5 pg (27-33); Mean Corpuscular Volume 89.9 fl (85-98); Monocytes # 0.7 10^3/uL (0.2-0.9); Monocytes % 7.9 %; Neutrophils # 6.15 10^3/uL (1.8-7.7); Neutrophils % 68.6 %; Nucleated Red Blood Cells % 0 %; Platelet Count 167 10^3/cmm (157-399); Red Blood Count 4.56 10^6/uL (3.85-5.65); Red Cell Distribution Width 11.9 % (12.1-15.1); White Blood Count 8.98 10^3/uL (3.29-11.43)
[2023-11-05] MEDS: metoclopramide 5 mg/mL SDV 2 mL 10 MG IVP (11:00)
[2023-11-05 11:02] LABS: Alanine Aminotransferase 11 U/L (0-33); Albumin Level 3.9 g/dL (3.5-5.2); Alkaline Phosphatase 70 U/L (35-105); Anion Gap 15.5 (5-19); Aspartate Amino Transferase 15 U/L (0-32); Blood Urea Nitrogen 6 mg/dL (6-20); Calcium 9.1 mg/dL (8.5-10.5); Carbon Dioxide 22 mmol/L (22-29); Chloride 99 mmol/L (98-107); Globulin 3.7 g/dL (1.3-4.6); Glomerular Filtration Rate 146.9 mL/min (90-130); Glucose 90 mg/dL (65-115); Osmolality Calculated 273 mOsm/kg (285-295); Potassium 3.5 mmol/L (3.5-5.1); Sodium 133 mmol/L (136-145); Total Bilirubin 0.2 mg/dL (0.15-1.2); Total Protein 7.6 g/dL (6.6-8.7)
[2023-11-05 11:44] LABS: Urine Appearance SL Hazy (CLEAR); Urine Color Amber (Yellow)
[2023-11-05 11:45] LABS: Add Urine Culture? No; Add Urine Microscopic? YES; Bacteria Urine 1+ /hpf; Bilirubin Urine 1+ (Negative); Blood Urine 2+ (Negative); Glucose Urine UA Norm (Normal); Ketones Urine 3+ (Negative); Leukocyte Esterase Urine 1+ (Negative); Mucus Urine 4+ /hpf; Nitrate Urine Negative (Negative); Protein Urine 1+ (Negative); Specific Gravity, Urine 1.015 (1.005-1.030); Squamous Epithelial Cell Urine 25-40 /hpf (0-5); Urobilinogen Urine Norm (Negative); WBC Urine 15-25 /hpf (0-5); pH Urine 6.5 (5-7)
== END 2023-11-05 12:28 | disposition home or self-care (01) ==
PROVIDERS: Emergency Provider Physician Assistant
DX: O23.41 Unspecified infection of urinary tract in pregnancy, first trimester (principal); N39.0 Urinary tract infection, site not specified; O99.611 Diseases of the digestive system complicating pregnancy, first trimester; K52.9 Noninfective gastroenteritis and colitis, unspecified; Z3A.10 10 weeks gestation of pregnancy
CPT/HCPCS: 80053; 81001; 85025; 96361; 96374; 99284; J2765; J7030

== ENCOUNTER → 2023-11-12 10:58 | Outpatient (BNVA) | payer OTHER, SELFPAY | PROVIDERS: Visit Provider Nurse Practitioner Women's Health | DX: Z34.80 Encounter for supervision of other normal pregnancy, unspecified trimester (principal) | CPT/HCPCS: 80307; 84315; 84439; 84443; 84481; 85025; 86592; 86762; 86803; 86850; 86900; 87086; 87340; 87491; 87591; 87806 ==

== ENCOUNTER 2024-02-12 09:36 | Outpatient (CLI) | payer OTHER, SELFPAY ==
[2024-02-12 08:30] VITALS: RESP 28; TEMP 35.5; TEMP 35.6; O2SAT 94; BMI 38.5
[2024-02-12 09:42] VITALS: BP 123/70; PULSE 107
[2024-02-12 09:45] VITALS: PULSE 109; O2SAT 94
[2024-02-12 09:48] VITALS: PULSE 105; O2SAT 94
[2024-02-12 09:50] VITALS: PULSE 102; O2SAT 94
== END 2024-02-12 09:55 | disposition home or self-care (01) ==
LOC: OPOB 09:36 → OBGYN 09:37
PROVIDERS: Visit Provider Obstetrics & Gynecology
DX: O36.8190 Decreased fetal movements, unspecified trimester, not applicable or unspecified (principal); Z3A.00 Weeks of gestation of pregnancy not specified; R06.02 Shortness of breath; R05.9 Cough, unspecified
CPT/HCPCS: 99211

== ENCOUNTER 2024-02-12 09:56 | Emergency (ER) | payer OTHER, SELFPAY ==
[2024-02-12 10:00] VITALS: BP 108/74; PULSE 95; RESP 16; TEMP 36.6; O2SAT 98; BMI 38.7
--- NOTE | 2024-02-12 12:21 | W.ED.URI ---
HPI - URI/Sore Throat General: Chief Complaint: Shortness of Breath/Dyspnea Stated Complaint: Shortness of breath Time Seen by Provider: 02/12/24 09:59 Source: patient Mode of arrival: ambulatory Limitations: no limitations History of Present Illness: Patient is a nice 28-year-old female approximately 24 weeks here with complaints of a cough over the past 3 days. She states cough began after camping outside. She states she feels short of breath after episodes of coughing but otherwise feels okay. She states the cough is dry and irritative. No known history of allergies. She has not had fevers. No other URI-like symptoms. Vital signs are stable upon arrival. Has been taking cough/cold medication that has been approved by her [employer] ADMINISTRATOR but feels these are not helping with her cough. MD elicited complaint: cough Onset (ago): day(s) Consistency: constant Severity: moderate Able to tolerate fluids by mouth: Yes Exacerbating factors: nothing Relieving factors: nothing Associated symptoms: Reports no associated symptoms and chest pain (from coughing so hard); Deny abdominal pain, chills, diarrhea, fever(s), headache(s), nasal congestion, nausea, sinus pain or vomiting Treatments prior to arrival: cold medicine Review of Systems Const: Denies: fever(s), chills, body aches, fatigue or malaise ENMT: Denies: throat pain, odynophagia, nasal discharge, nasal congestion or sinus pain Card: Reports: chest pain (from coughing so hard); Denies: palpitations, irregular heart rhythm, edema, swelling of feet/ankles, lightheadedness, syncope, pre-syncope, dyspnea on exertion, orthopnea, leg pain with exertion or acrocyanosis Resp: Reports: dyspnea and non-productive cough; Denies: wheezing, stridor, change in phlegm color, hemoptysis or chest congestion GI: Denies: abdominal pain, nausea, vomiting or diarrhea : Denies: vaginal bleeding or pelvic pain Musc: Denies: neck pain, back pain, extremity pain or joint pain Neuro: Denies: headache(s) or dizziness PFS ED PFSH: Medical History Skin infection No pertinent past medical history neghx:htn,dm,thyroid,dvt/pe,herpes Denies past partner herpes hx PCP: none Obesity Blood type A+ Surgical History S/P wisdom tooth extraction (~2012) Performed in [place], [place]. S/P arthroscopy of knee (~11/2017) Meniscal repair of the right knee Family History Grandmother Breast cancer maternal great Hypertension maternal Father Diabetes Hypertension Grandfather Diabetes maternal Stroke maternal Heart disease paternal Hypercholesteremia maternal Family/Other Stroke maternal uncle Heart disease maternal uncle Mother Hypercholesteremia Hypertension Diabetes Female Reproductive History: Para: 0 Spontaneous abortions: No Physical Exam Const: COMMON NORMALS: no acute distress, patient oriented x3, no limitations, alert and well nourished GENERAL APPEARANCE: cooperative ORIENTATION/CONSCIOUSNESS: Yes awake, Yes oriented to person, Yes oriented to place and Yes oriented to time Neck/C-Spine: COMMON NORMALS: no lymphadenopathy Chest: COMMONS NORMALS: normal inspection of the chest and normal palpation of entire chest wall Resp: COMMON NORMALS: normal respiratory effort and clear to auscultation bilaterally AUSCULTATION: clear to auscultation bilaterally OTHER: appears winded after episodes of coughing but recovers; she is moving good air; satting 98-99% on RA Cardio: COMMON NORMALS: regular rate and regular rhythm RATE: regular rate RHYTHM: regular rhythm Extremity: COMMON NORMALS: no calf tenderness GENERAL: Yes normal exam except as noted Neuro: COMMON NORMALS: patient oriented x3, moves all extremities, no focal motor deficits, no sensory deficits noted and gait normal SENSORIUM/ORIENTATION: Yes alert, Yes oriented to person, Yes oriented to place and Yes oriented to time Skin: COMMON NORMALS: no rashes or lesions noted GENERAL SKIN EXAM: no rashes or lesions noted Course Vital Signs: Vital signs: Vital Signs Temperature 97.8 F 02/12/24 10:00 Pulse Rate 91 02/12/24 13:03 Respiratory Rate 18 02/12/24 13:03 Blood Pressure 126/75 02/12/24 13:03 Pulse Oximetry 99 02/12/24 13:03 Oxygen Delivery Me thod Room Air 02/12/24 13:03 MDM - URI/Sore Throat Medical Decision Making Patient here for irritative, dry cough over the past 3 days after camping. Her vital signs are stable upon arrival. CXR is unremarkable. Respiratory panel collected and pending. Recommend continuing at home medications for her cough including Robitussin, lemon/honey/elderberry syrup, anti-histamines, humidifier, chest rubs, throat lozenges, etc. Discussed with her OB who was okay giving her a dose of IM Solu-Medrol here prior to discharge. She has nebulizer machine at home for albuterol treatments-she has been doing these with minimal relief. No concern at this time for more ominous etiology for her cough. Return precautions given. Differential Diagnosis Likely upper respiratory infection, viral infection and bronchitis Medical Records I reviewed the patient's medical records. Lab Data Radiology Impressions Chest X-Ray 02/12/24 12:29 IMPRESSION: Unremarkable chest radiograph. All radiology interpretation(s) finalized by discharge Discharge Plan Discharge Patient Disposition: Home Clinical Impression: Cough Qualifiers: Cough type: acute Qualified Code(s): R05.1 - Acute cough Condition: Stable Prescriptions: No Action famotidine [Pepcid] 40 mg tablet 40 mg PO BID Qty: 60 2RF [id number] [Fioricet] 50-300-40 mg capsule 1 cap PO Q8H PRN (Reason: pain) Qty: 20 1RF ondansetron HCl 4 mg tablet 4 mg PO Q8H PRN (Reason: nausea and vomiting) Qty: 30 0RF nystatin 100,000 unit/gram cream 1 applic topical BID Qty: 30 3RF metoclopramide HCl 10 mg tablet 10 mg PO Q6H PRN (Reason: nausea and vomiting) Qty: 30 3RF Gummies 400 mcg-35 mg- 25 mg-5 mg tablet,chewable 1 tab PO DAILY ondansetron HCl 8 mg tablet 8 mg PO TID PRN (Reason: nausea and vomiting) Qty: 20 0RF ondansetron HCl 4 mg tablet 4 mg PO Q8H PRN (Reason: nausea and vomiting) Qty: 30 2RF metoclopramide HCl 10 mg tablet See Rx Instructions .ROUTE .COMPLEX Qty: 30 2RF Dose Instruction: TAKE 1 TABLET BY MOUTH EVERY 6 HOURS NEEDED FOR NAUSEA AND VOMITING Rx Instructions: TAKE 1 TABLET BY MOUTH EVERY 6 HOURS NEEDED FOR NAUSEA AND VOMITING levofloxacin 500 mg tablet 500 mg PO DAILY 7 Days Qty: 7 0RF metronidazole 500 mg tablet 500 mg PO BID 7 Days Qty: 14 0RF amoxicillin-pot clavulanate 875-125 mg tablet 1 tab PO BID Qty: 14 0RF Discharge Orders: Discharge ED (Routine); Ordered 02/12/24 Ordered By: Rachel Hurley Patient Instructions: Acute Cough (ED) Coding Level of Care Code ED Organic Gardening Teacher for Jamil Hagan
--- NOTE | 2024-02-12 12:29 | XR_ITS ---
WS: [id number] Exam: XR chest 1V portable [id number] Date/Time of Exam: 02/12/2024 12:31 PM Reason For Exam: cough; shield- No prior exams. Findings: The lungs are clear and fully expanded. Costophrenic angles are sharp. No infiltrates. Bronchovascula r relief appears normal. Cardiac silhouette is unremarkable. Bony elements are intact. XR/XR chest 1V portable [id number] IMPRESSION: Unremarkable chest radiograph.
[2024-02-12 12:41] VITALS: BP 126/75; PULSE 99; RESP 20; O2SAT 95
[2024-02-12] MEDS: methylPREDNISolone sod succ 125 mg/2 mL INJ 80 MG IM (13:01)
[2024-02-12 13:03] VITALS: BP 126/75; PULSE 91; RESP 18; O2SAT 99
[2024-02-12 13:21] VITALS: BP 112/65; PULSE 94; RESP 18; O2SAT 99
[2024-02-12 14:36] LABS: Adenovirus Not Detected (NOT DETECT); Chlamydia Pneumoniae Not Detected (NOT DETECT); Coronavirus 229E,HKU1,NL63,OC4 Not Detected (NOT DETECT); Human Metapneumovirus Not Detected (NOT DETECT); Human Rhinovirus/Enterovirus Not Detected (NOT DETECT); Influenza A Not Detected (NOT DETECT); Influenza A H1 Not Detected (NOT DETECT); Influenza A H1-2009 Not Detected (NOT DETECT); Influenza A H3 Not Detected (NOT DETECT); Influenza B Not Detected (NOT DETECT); Mycoplasma Pneumoniae Not Detected (NOT DETECT); Parainfluenza Virus Type 1 Not Detected (NOT DETECT); Parainfluenza Virus Type 2 Not Detected (NOT DETECT); Parainfluenza Virus Type 3 Detected (NOT DETECT); Parainfluenza Virus Type 4 Not Detected (NOT DETECT); Respiratory Syncytial Virus A Not Detected (NOT DETECT); Respiratory Syncytial Virus B Not Detected (NOT DETECT); SARS-COV-2 Not Detected (NOT DETECT)
== END 2024-02-12 13:20 | disposition home or self-care (01) ==
PROVIDERS: Emergency Provider Physician Assistant
DX: O26.892 Other specified pregnancy related conditions, second trimester (principal); R05.1 Acute cough; Z3A.24 24 weeks gestation of pregnancy
CPT/HCPCS: 71045; 87486; 87581; 87633; 96372; 99284; J2919

== ENCOUNTER → 2024-02-14 08:17 | Outpatient (BNVA) | payer OTHER, SELFPAY | PROVIDERS: Visit Provider Nurse Practitioner Women's Health | DX: Z34.90 Encounter for supervision of normal pregnancy, unspecified, unspecified trimester (principal) | CPT/HCPCS: 82950; 84315 ==

== ENCOUNTER → 2024-03-17 08:38 | Outpatient (BNVA) | payer OTHER, SELFPAY | PROVIDERS: Visit Provider Obstetrics & Gynecology | DX: R30.0 Dysuria (principal); Z34.80 Encounter for supervision of other normal pregnancy, unspecified trimester | CPT/HCPCS: 84315; 87086 ==

== ENCOUNTER 2024-04-04 19:30 | Outpatient (CLI) | payer OTHER, SELFPAY ==
[2024-04-04 19:57] VITALS: BP 118/58; PULSE 99
[2024-04-04 21:36] VITALS: BP 119/65; PULSE 84
== END 2024-04-04 21:36 | disposition left against medical advice (07) ==
LOC: OPOB 19:31 → OBGYN 19:33
PROVIDERS: Visit Provider Obstetrics & Gynecology
DX: O26.899 Other specified pregnancy related conditions, unspecified trimester (principal); Z3A.00 Weeks of gestation of pregnancy not specified; R10.9 Unspecified abdominal pain
CPT/HCPCS: 59025; 99211

== ENCOUNTER → 2024-04-14 15:17 | Outpatient (BNVA) | payer OTHER, SELFPAY | PROVIDERS: Visit Provider Obstetrics & Gynecology | DX: O26.893 Other specified pregnancy related conditions, third trimester (principal); Z3A.33 33 weeks gestation of pregnancy | CPT/HCPCS: 76816 ==

== ENCOUNTER → 2024-04-28 09:31 | Outpatient (BNVA) | payer OTHER, SELFPAY | PROVIDERS: Visit Provider Obstetrics & Gynecology | DX: Z34.80 Encounter for supervision of other normal pregnancy, unspecified trimester (principal) | CPT/HCPCS: 81000 ==

== ENCOUNTER → 2024-05-05 13:34 | Outpatient (BNVA) | payer OTHER, SELFPAY | PROVIDERS: Visit Provider Obstetrics & Gynecology | DX: Z34.80 Encounter for supervision of other normal pregnancy, unspecified trimester (principal) | CPT/HCPCS: 84315; 87081 ==

== ENCOUNTER → 2024-05-21 07:56 | Outpatient (BNVA) | payer OTHER, SELFPAY | PROVIDERS: Visit Provider Obstetrics & Gynecology | DX: Z34.90 Encounter for supervision of normal pregnancy, unspecified, unspecified trimester (principal) | CPT/HCPCS: 84315 ==

== ENCOUNTER 2024-05-29 08:27 | Inpatient (IN) | payer OTHER, SELFPAY ==
[2024-05-29] VITALS (111 sets, daily range): BP systolic 88–141; BP diastolic 49–85; PULSE 59–119; TEMP 36.2; O2SAT 88–100; BMI 39.1
[2024-05-29 09:33] LABS: Basophils % 0.4 %; Eosinophils # 0.1 10^3/uL (0.0-0.8); Eosinophils % 0.5 %; Hematocrit 34.6 % (36-47); Lymphocytes # 2.7 10^3/uL (0.8-4.8); Lymphocytes % 24.8 %; Mean Corpuscular HGB Conc 33.8 g/dL (30-55); Mean Corpuscular Hemoglobin 30.1 pg (27-33); Mean Corpuscular Volume 88.9 fl (85-98); Mean Platelet Volume 10.2 fL (7.4-10.4); Monocytes # 0.5 10^3/uL (0.2-0.9); Monocytes % 4.7 %; Neutrophils % 69.2 %; Nucleated Red Blood Cells % 0 %; Platelet Count 178 10^3/cmm (157-399); Red Blood Count 3.89 10^6/uL (3.85-5.65); Red Cell Distribution Width 13.8 % (12.1-15.1); White Blood Count 10.99 10^3/uL (3.29-11.43)
[2024-05-29] MEDS: dextrose 5%-lactated ringers 1,000 ML 125 ML IV (09:39)
[2024-05-29] MEDS: ampicillin 2,000 MG in sodium chloride 0.9% (plus) 50 ML 100 MG IV (09:39)
[2024-05-29] MEDS: acetaminophen 325 mg Tablet 650 MG PO (09:50)
[2024-05-29] MEDS: oxytocin 30 UNIT/500 ML BAG IV (09:52)
--- NOTE | 2024-05-29 10:25 | PM.OBGYHP ---
Providers/Chief Complaint Admitting Physician: Jn Thapa MD Primary METALS SALES REPRESENTATIVE: Jn Thapa MD Chief Complaint: IOL HPI METALS SALES REPRESENTATIVE History of Present Illness Jesus Phillip is a 28 year old female EDC June 03, 2024 At 39 w 2 d No complications Admitted for elective induction of labor No c/o + active movements Present Details : 3 Para: 2 Labs Rubella: Immune RPR: Negative GBS: Positive Medications/Allergies Home Medications Medication Instructions Recorded Confirmed Last Taken Type famotidine 40 mg tablet See Rx Instructions .Route 03/03/24 05/26/24 04/04/24 13:30 Rx .COMPLEX #60 tabs ondansetron HCl 4 mg tablet See Rx Instructions .Route 04/08/24 05/26/24 Unknown Rx .COMPLEX #30 tabs metoclopramide HCl 10 mg tablet See Rx Instructions .Route 05/20/24 05/26/24 Unknown Rx .COMPLEX #30 tabs Allergies Allergy/AdvReac Type Severity Reaction Status Date / Time Opioids - Morphine Analogues Allergy Severe anaphlyaxis Verified 05/26/24 15:50 PFSH METALS SALES REPRESENTATIVE PFSH: Medical History Skin infection No pertinent past medical history neghx:htn,dm,thyroid,dvt/pe,herpes Denies past partner herpes hx PCP: none Obesity Blood type A+ Surgical History S/P wisdom tooth extraction (~2012) Performed in [place], [place]. S/P arthroscopy of knee (~11/2017) Meniscal repair of the right knee Family History Grandmother Breast cancer maternal great Hypertension maternal Father Diabetes Hypertension Grandfather Diabetes maternal Stroke maternal Heart disease paternal Hypercholesteremia maternal Family/Other Stroke maternal uncle Heart disease maternal uncle Mother Hypercholesteremia Hypertension Diabetes Social History Smoking and tobacco/nicotine status: former use of tobacco/nicotine Other Female Reproductive History: Hx Age of Menarche: 13 History History History 3 Term 2 0 Miscarriages/Ectopic 0 Living Children 2 Care POLI Calculator Estimated Delivery Date Method Current WG Current Estimate 06/03/24 Ultrasound #1 39w 2d Vitals/I&O/Wt Last Vital Signs Temp 97.2 F L 05/29/24 17:49 Pulse 89 05/29/24 18:33 BP 120/70 05/29/24 18:33 Pulse Ox 100 05/29/24 18:33 O2 Del Method Non-Rebreather 05/29/24 16:54 O2 Flow Rate 10 05/29/24 16:54 05/29/24 05/29/24 05/29/24 06:59 14:59 22:59 Intake Total 79.383 / 79.383 1097.7 / 1177.083 Balance 79.383 / 79.383 1097.7 / 1177.083 Weight last 48 hrs Weight 214 lb Physical Exam Narrative: Weight 220 lbs; 5?2? VS normal General comfortable, awake, alert Lungs: clear Cor: RRR FH 38 cm, cephalic Cervix: 3-4 / 50% / -2 / posterior Ext: no edema External monitor: heart tracing good variability, + accelerations Urinary Catheter Management: Chang: Cath Placed During This Visit: yes Urinary Catheter Date of Insertion: 05/29/24 Urinary Catheter Time of Insertion: 15:05 Data 05/29/24 08:50 Results Labs OB ([facility]): Obstetrics US 04/14/24 Obstetrics US/Biophysical Profile 01/23/20 Blood Type A Positive 05/29/24 Antibody Screen Negative 05/29/24 Hct 34.6 % (36-47) L 05/29/24 Hgb 11.70 g/dL (11.27-16.99) 05/29/24 Rho(D) Type Rh positive 05/29/24 Plt Count 178 10^3/cmm (157-399) 05/29/24 Hep Bs Antigen Non-reactive (Nonreactive) 11/12/23 Hepatitis C Antibody Non-reactive (Nonreactive) 11/12/23 Rubella IgG Antibody 21.6 IU/mL (0.0-10.0) H 11/12/23 RPR Nonreactive (Nonreactive) 11/12/23 HIV 1&2 Ab & HIV 1 Ag Non-reactive (Non-Reactiv) 11/12/23 TSH 0.32 uIU/mL (0.27-4.20) 11/12/23 Free T4 1.25 ng/dL (0.82-1.77) 11/12/23 C.trachomatis RNA (TMA) Not detected (NOT DETECTED) 11/12/23 N.gonorrhoeae RNA (TMA) Not detected (NOT DETECTED) 11/12/23 T. vaginalis Amp RNA Not detected (NOT DETECTED) 11/12/23 Chlamydia/GC Comment See note 11/12/23 Glucose 1 Hr 50 gm 88 mg/dL (85-140) 02/14/24 Gest Glucose Tolerance 95 mg/dL 01/26/21 HCG, Qual Positive (Negative) H 10/25/23 Urine Opiates Screen Negative ng/mL (Negative) 11/12/23 Ur Barbiturates Screen Negative ng/mL (Negative) 11/12/23 Ur Phencyclidine Scrn Negative ng/mL (Negative) 11/12/23 Ur Amphetamines Screen Negative ng/mL (Negative) 11/12/23 U Benzodiazepines Scrn Negative ng/mL (Negative) 11/12/23 Urine Cocaine Screen Negative ng/mL (Negative) 11/12/23 U Marijuana (THC) Screen Negative ng/mL (Negative) 11/12/23 Micro Urine Specimen 03/17/24 A&P Assessment and plan (1) Encounter for induction of labor: 39 w 2 d Fetus reassuring Patient admitted for elective induction of labor per patient?s request Plan start Pitocin (2) GBS carrier: plan start penicillin Attestations Medical Necessity Statement*: patient at 39 w 2 d, admitted for induction of labor Coding Level of Care Code Acute Code for Chg Fwd Diagnoses Encounter for induction of labor Z34.90 GBS carrier Z22.330 Time Spent (min) 30
--- NOTE | 2024-05-29 12:25 | P.ANESASSM_ITS ---
Pre-Anesthetic Assessment Height/Weight: Height 1.57 m Weight 97.069 kg Pulse BP O2 Del Method 77 110/63 Room Air 05/29/24 12:21 05/29/24 12:21 05/29/24 09:01 Epidural Familial anesthetic complications: None Was Beta Chandrakant taken within 24 hours: N/A Was Clonidine taken within 24 hours: N/A Last intake: Solids this AM Social Tobacco and No alcohol 5-6 cigs a day pack(s) per day Exam alert, oriented x 3, clear to auscultation bilaterally and regular rate & rhythm Airway Submandibular: within normal limits Cervical ROM: within normal limits Mallampati: Class II Dentition: full History/ROS No significant history except as noted Pulmonary Allergies CV/HEM None reported None reported Hepatic None reported GI Gastroesophageal Reflux Disease Metabolic None reported Musc/skel Lower Back Pain Two slipped discs in lower back Neuropsych None reported Anesthetic Plan ASA status: 2 Anesthesia: Anesthesia Evaluation, General and Regional (specify below) (Epidural) Risk of > 500 ml blood loss (7ml/kg in children): Yes, adequate IV access and fluids planned Medications/Allergies Home Medications Medication Instructions Recorded Confirmed Last Taken Type famotidine 40 mg tablet See Rx Instructions .Route 03/03/24 05/26/24 04/04/24 13:30 Rx .COMPLEX #60 tabs ondansetron HCl 4 mg tablet See Rx Instructions .Route 04/08/24 05/26/24 Unknown Rx .COMPLEX #30 tabs metoclopramide HCl 10 mg tablet See Rx Instructions .Route 05/20/24 05/26/24 Unknown Rx .COMPLEX #30 tabs Allergies Allergy/AdvReac Type Severity Reaction Status Date / Time Opioids - Morphine Analogues Allergy Severe anaphlyaxis Verified 05/26/24 15:50 Current Medications Generic Name Dose Route Start Last Admin Trade Name Freq PRN Reason Stop Dose Admin Acetaminophen 650 mg 05/29/24 09:21 05/29/24 09:50 Acetaminophen 325 Mg Tablet PO 650 mg Q6H PRN Administration Mild pain or temp > 100.4 Dextrose/Lactated Ringer's 1,000 mls @ 125 mls/hr 05/29/24 09:30 05/29/24 09:39 Dextrose 5%-Lactated Ringers IV 125 mls/hr .Q8H BRITTNI Administration Oxytocin 30 unit in 500 mls @ 1 mls/hr 05/29/24 09:30 05/29/24 12:00 Pitocin IV 8 milliunit/min .Q24H BRITTNI 8 mls/hr Titration Protocol 1 MILLIUNIT/MIN PFSH Anesthesia Medical History Skin infection No pertinent past medical history neghx:htn,dm,thyroid,dvt/pe,herpes Denies past partner herpes hx PCP: none Obesity Blood type A+ Surgical History S/P wisdom tooth extraction (~2012) Performed in [place], [place]. S/P arthroscopy of knee (~11/2017) Meniscal repair of the right knee Family History Grandmother Breast cancer maternal great Hypertension maternal Father Diabetes Hypertension Grandfather Diabetes maternal Stroke maternal Heart disease paternal Hypercholesteremia maternal Family/Other Stroke maternal uncle Heart disease maternal uncle Mother Hypercholesteremia Hypertension Diabetes Social History Smoking and tobacco/nicotine status: former use of tobacco/nicotine Female Reproductive History : 3 Para: 0 Spontaneous abortions: No Data Anesthesia 05/29/24 08:50 Short CBC 05/29/24 Range/Units 08:50 WBC 10.99 (3.29-11.43) 10^3/uL Hgb 11.70 (11.27-16.99) g/dL Hct 34.6 L (36-47) % MCV 88.9 (85-98) fl Plt Count 178 (157-399) 10^3/cmm Neut % (Auto) 69.2 % Neut # (Auto) 7.60 (1.8-7.7) 10^3/uL Blood Bank 05/29/24 08:50 Blood Type A Positive Rho(D) Type Rh positive Antibody Screen Negative Cardiac Studies: 2 No Data to Display
[2024-05-29] MEDS: lactated ringers 1,000 ML 999 ML IV ×2 (14:09→16:15)
[2024-05-29] MEDS: ampicillin 1,000 MG in sodium chloride 0.9% (plus) 50 ML 100 MG IV ×2 (14:10→17:36)
[2024-05-29] MEDS: ROPivacaine syringe 100 MG/50 ML SYRINGE 13 MG EPIDURAL ×2 (15:00→16:47)
--- NOTE | 2024-05-29 15:05 | ANES.PROC ---
Anesthesia Procedures Procedure/Date: 05/29/24 Epidural: Time Out Performed: Yes Consents Signed: Procedure Consent and NPO Consent Consent: requested by attending/covering physician, from patient, risks and benefits reviewed and patient agrees to proceed Lumbar Level: L3-L4 Epidural position: sitting Epidural procedure: sterile prep of area (betadine), 1% lidocaine to numb the area (3 mLs), neg for paresthesia, test dose given, 1.5% xylocaine 1:200k epi (3 mLs/ 2 mLs), placed PCEA, no systemic response, sterile dressing applied, L.U.D. no apparent complications and 0.2% Ropiavacaine @ mls/hr (13) Additional Comments: GREGORIO 5cm, catheter threaded to 12cm. Negative aspiration for CSF
--- NOTE | 2024-05-29 17:35 | P.PN_ITS ---
SECONDARY SPECIAL EDUCATION TEACHER Subjective 2 Subjective: Interval history: External heart tracing with non-repetitive variable decelerations Cervix: 4 cm / 90% / -2 / posterior / BBOW AROM, clear fluid scalp electrode placed Labor: Station: 0 Amniotic Membrane Status: Ruptured Monitor Mode: External Contraction Pattern: Regular Vitals/I&O/Wt Last Vital Signs Temp 97.2 F L 05/29/24 17:49 Pulse 88 05/29/24 18:38 BP 120/70 05/29/24 18:33 Pulse Ox 98 05/29/24 18:38 O2 Del Method Non-Rebreather 05/29/24 16:54 O2 Flow Rate 10 05/29/24 16:54 05/29/24 05/29/24 05/29/24 06:59 14:59 22:59 Intake Total 79.383 / 79.383 1097.7 / 1177.083 Balance 79.383 / 79.383 1097.7 / 1177.083 Weight last 48 hrs Weight 214 lb Physical Exam 2 Urinary Catheter Management: Chang: Cath Placed During This Visit: yes Reason for Continuing Indwelling Catheter: Accurate Measurement of Urinary Output in Critically Ill Patients Urinary Catheter Date of Insertion: 05/29/24 Urinary Catheter Time of Insertion: 15:05 Data 05/29/24 08:50 A&P Assessment and plan (1) Encounter for induction of labor: Attestations 2 Medical Necessity Statement*: patient at 39 w 2 d, admitte for induction of labor Coding Level of Care Code Acute Code for Chg Fwd Diagnoses Encounter for induction of labor Z34.90 Time Spent (min) 30
--- NOTE | 2024-05-29 17:50 | P.PN_ITS ---
OCCUPATIONAL THERAPY ASST Subjective 2 Subjective: Interval history: heart tracing via FSE good variability, + accelerations Labor: Station: 0 Amniotic Membrane Status: Ruptured Monitor Mode: External Contraction Pattern: Regular Vitals/I&O/Wt Last Vital Signs Temp 97.2 F L 05/29/24 17:49 Pulse 88 05/29/24 18:38 BP 120/70 05/29/24 18:33 Pulse Ox 98 05/29/24 18:38 O2 Del Method Non-Rebreather 05/29/24 16:54 O2 Flow Rate 10 05/29/24 16:54 05/29/24 05/29/24 05/29/24 06:59 14:59 22:59 Intake Total 79.383 / 79.383 1097.7 / 1177.083 Balance 79.383 / 79.383 1097.7 / 1177.083 Weight last 48 hrs Weight 214 lb Physical Exam 2 Urinary Catheter Management: Chang: Cath Placed During This Visit: yes Reason for Continuing Indwelling Catheter: Accurate Measurement of Urinary Output in Critically Ill Patients Urinary Catheter Date of Insertion: 05/29/24 Urinary Catheter Time of Insertion: 15:05 Data 05/29/24 08:50 A&P Assessment and plan (1) Encounter for induction of labor: Attestations 2 Medical Necessity Statement*: patient at 39 w 2 d, admitted for induction of labor Coding Level of Care Code Acute Code for Chg Fwd Diagnoses Encounter for induction of labor Z34.90 Time Spent (min) 20
--- NOTE | 2024-05-29 19:15 | PM.DELIVERY ---
Delivery Note: Date of delivery: May 29, 2024 Pre-delivery diagnoses: 39 w 2 d admitted for elective induction of labor Post-delivery diagnoses: 39 w 2 d admitted for elective induction of labor pitocin augmentation vaginal delivery Procedure: induction of labor vaginal delivery Op report anesthesia: Epidural Delivering Physician: Jn Thapa MD Estimated blood loss (mL): 300 Findings: , vigorous female Cord gases obtained Normal placenta and cord No episotomy / lacerations EBL: 300 cc No complications Pre-Delivery Course: normal labor course Delivery: vaginal Post-Delivery Status: good History History History 3 Term 2 0 Miscarriages/Ectopic 0 Living Children 2 A&P Assessment and plan (1) Vaginal delivery: Coding Level of Care Code Acute Code for Chg Fwd Diagnoses Vaginal delivery O80 Time Spent (min) 60
[2024-05-29] MEDS: ibuprofen 800 mg tablet PO (20:10)
[2024-05-30 00:15] VITALS: BP 132/87; PULSE 77; RESP 16; TEMP 36.6; O2SAT 99
[2024-05-30 02:15] VITALS: BP 111/72; PULSE 63; RESP 14; TEMP 36.6; O2SAT 97
[2024-05-30 05:30] VITALS: BP 126/79; PULSE 65; RESP 14; TEMP 36.8; O2SAT 99
[2024-05-30] MEDS: acetaminophen 325 mg Tablet 650 MG PO (06:13)
[2024-05-30] MEDS: PRENATAL VIT NO.130/IRON/FOLIC 1 EACH TABLET PO (08:29)
[2024-05-30] MEDS: ibuprofen 800 mg tablet PO ×2 (08:29→16:14)
[2024-05-30] MEDS: docusate sodium 100 mg Capsule PO (08:29)
[2024-05-30 08:36] VITALS: BP 108/70; PULSE 71
[2024-05-30 08:51] LABS: Hematocrit 34.5 % (36-47); Mean Corpuscular HGB Conc 33.3 g/dL (30-55); Mean Corpuscular Hemoglobin 30.3 pg (27-33); Mean Corpuscular Volume 90.8 fl (85-98); Mean Platelet Volume 9.9 fL (7.4-10.4); Platelet Count 149 10^3/cmm (157-399); Red Cell Distribution Width 13.7 % (12.1-15.1); White Blood Count 11.45 10^3/uL (3.29-11.43)
--- NOTE | 2024-05-30 12:24 | PM.OBGYDC ---
Discharge Providers REAL ESTATE LEASING AGENT Date of Admission: 05/29/24 08:27 Date of Discharge: 05/30/24 Attending Provider at Admission: Jn Thapa MD Attending Provider at Discharge: Jn Thapa MD Consults: none Primary REAL ESTATE LEASING AGENT: Jn Thapa MD Diagnoses at Discharge Discharge Diagnosis (1) Vaginal delivery: Details from hospital stay: 28 y.o. admitted at 39 w 2 d for elective induction of labor cervix was 3-4 cm on admission pitocin was given per protocol patient progressed to complete had vaginal delivery of vigorous female with no lacerations patient had normal course and was discharged to home on the first day Status: Acute Reason for Visit Reason for Visit: IOL Brief History: 28 y.o. admitted at 39 w 2 d for elective induction of labor Hospital Course Hospital Course 28 y.o. admitted at 39 w 2 d for elective induction of labor cervix was 3-4 cm on admission pitocin was given per protocol patient progressed to complete had vaginal delivery of vigorous female with no lacerations patient had normal course and was discharged to home on the first day Information Peripartum Data: Delivery Method: Vaginal Laceration description: None Episiotomy description: None complications: none Physical Exam Narrative: afebrile, VS normal comfortable, awake, alert Abd: soft, nontender. fundus firm Ext: no edema; nontender Urinary Catheter Management: Chang: Cath Placed During This Visit: yes, but has since been removed by the nurse Reason for Continuing Indwelling Catheter: Decision to DC Catheter Urinary Catheter Date of Insertion: 05/29/24 Urinary Catheter Time of Insertion: 15:05 Date Urinary Catheter Removed: 05/29/24 Time Urinary Catheter Discontinued: 19:05 History History History 3 Term 2 0 Miscarriages/Ectopic 0 Living Children 2 Discharge Data Studies Completed and Pending Pending at discharge Category Date Time Status Hemagram Timed Lab 05/30/24 17:51 Uncollected Laboratory Results WBC 11.45 10^3/uL (3.29-11.43) H 05/30/24 08:35 RBC 3.80 10^6/uL (3.85-5.65) L 05/30/24 08:35 Hgb 11.50 g/dL (11.27-16.99) 05/30/24 08:35 Hct 34.5 % (36-47) L 05/30/24 08:35 MCV 90.8 fl (85-98) 05/30/24 08:35 MCH 30.3 pg (27-33) 05/30/24 08:35 MCHC 33.3 g/dL (30-55) 05/30/24 08:35 RDW 13.7 % (12.1-15.1) 05/30/24 08:35 Plt Count 149 10^3/cmm (157-399) L 05/30/24 08:35 MPV 9.9 fL (7.4-10.4) 05/30/24 08:35 Neut % (Auto) 69.2 % 05/29/24 08:50 Lymph % (Auto) 24.8 % 05/29/24 08:50 Vernon % (Auto) 4.7 % 05/29/24 08:50 Eos % (Auto) 0.5 % 05/29/24 08:50 Baso % (Auto) 0.4 % 05/29/24 08:50 Neut # (Auto) 7.60 10^3/uL (1.8-7.7) 05/29/24 08:50 Lymph # (Auto) 2.7 10^3/uL (0.8-4.8) 05/29/24 08:50 Vernon # (Auto) 0.5 10^3/uL (0.2-0.9) 05/29/24 08:50 Eos # (Auto) 0.1 10^3/uL (0.0-0.8) 05/29/24 08:50 Baso # (Auto) 0.0 10^3/uL (0.0-0.1) 05/29/24 08:50 Nucleated RBC % (auto) 0 % 05/29/24 08:50 Nucleated RBCs # 0.0 /100WBC 05/29/24 08:50 Blood Type A Positive 05/29/24 08:50 Rho(D) Type Rh positive 05/29/24 08:50 Antibody Screen Negative 05/29/24 08:50 Procedures Performed induction of labor vaginal delivery Vitals Last Vital Signs Temp 98.2 F 05/30/24 05:30 Pulse 71 05/30/24 08:36 Resp 14 05/30/24 05:30 BP 108/70 05/30/24 08:36 Pulse Ox 99 05/30/24 05:30 O2 Del Method Room Air 05/30/24 08:36 O2 Flow Rate 10 05/29/24 16:54 Results Labs OB ([facility]): Obstetrics US 04/14/24 Obstetrics US/Biophysical Profile 01/23/20 Blood Type A Positive 05/29/24 Antibody Screen Negative 05/29/24 Hct 34.5 % (36-47) L 05/30/24 Hgb 11.50 g/dL (11.27-16.99) 05/30/24 Rho(D) Type Rh positive 05/29/24 Plt Count 149 10^3/cmm (157-399) L 05/30/24 Hep Bs Antigen Non-reactive (Nonreactive) 11/12/23 Hepatitis C Antibody Non-reactive (Nonreactive) 11/12/23 Rubella IgG Antibody 21.6 IU/mL (0.0-10.0) H 11/12/23 RPR Nonreactive (Nonreactive) 11/12/23 HIV 1&2 Ab & HIV 1 Ag Non-reactive (Non-Reactiv) 11/12/23 TSH 0.32 uIU/mL (0.27-4.20) 11/12/23 Free T4 1.25 ng/dL (0.82-1.77) 11/12/23 C.trachomatis RNA (TMA) Not detected (NOT DETECTED) 11/12/23 N.gonorrhoeae RNA (TMA) Not detected (NOT DETECTED) 11/12/23 T. vaginalis Amp RNA Not detected (NOT DETECTED) 11/12/23 Chlamydia/GC Comment See note 11/12/23 Glucose 1 Hr 50 gm 88 mg/dL (85-140) 02/14/24 Gest Glucose Tolerance 95 mg/dL 01/26/21 HCG, Qual Positive (Negative) H 10/25/23 Urine Opiates Screen Negative ng/mL (Negative) 11/12/23 Ur Barbiturates Screen Negative ng/mL (Negative) 11/12/23 Ur Phencyclidine Scrn Negative ng/mL (Negative) 11/12/23 Ur Amphetamines Screen Negative ng/mL (Negative) 11/12/23 U Benzodiazepines Scrn Negative ng/mL (Negative) 11/12/23 Urine Cocaine Screen Negative ng/mL (Negative) 11/12/23 U Marijuana (THC) Screen Negative ng/mL (Negative) 11/12/23 Micro Urine Specimen 03/17/24 Discharge Plan Discharge Patient Disposition: Home Condition: Stable Prescriptions: Continued famotidine 40 mg tablet See Rx Instructions .ROUTE .COMPLEX Qty: 60 2RF Dose Instruction: TAKE 1 TABLET BY MOUTH TWICE DAILY Rx Instructions: TAKE 1 TABLET BY MOUTH TWICE DAILY ondansetron HCl 4 mg tablet See Rx Instructions .ROUTE .COMPLEX Qty: 30 0RF Dose Instruction: TAKE 1 TABLET BY MOUTH EVERY 8 HOURS NEEDED FOR NAUSEA AND VOMITING Rx Instructions: TAKE 1 TABLET BY MOUTH EVERY 8 HOURS NEEDED FOR NAUSEA AND VOMITING metoclopramide HCl 10 mg tablet See Rx Instructions .ROUTE .COMPLEX Qty: 30 3RF Dose Instruction: TAKE 1 TABLET BY MOUTH EVERY 6 HOURS NEEDED FOR NAUSEA AND VOMITING Rx Instructions: TAKE 1 TABLET BY MOUTH EVERY 6 HOURS NEEDED FOR NAUSEA AND VOMITING Discharge Orders: Discharge Order (Routine); Ordered 05/30/24 Ordered By: Jn Thapa Referrals: Karla Yepez, [employer] [Nurse Practitioner] - 07/10/24 1:00 pm Discharge Diet: Usual diet Discharge Activity: Increase activity as tolerated Patient Instructions: Depression (GEN), Bleeding (GEN), Preeclampsia and Eclampsia After Delivery (GEN), Hemorrhage (GEN), OB Food/Drug Interaction Guide, OB Care at Home, Opioid Safety, OB Home Care, OB Vaginal Deliveries - [facility], Abnormal Bleeding Discharge Attestations REAL ESTATE LEASING AGENT Time Spent in Discharge Care*: less than 30 min Coding Level of Care Code Acute Code for Chg Fwd Diagnoses Vaginal delivery O80 Time Spent (min) 20
--- NOTE | 2024-05-30 14:24 | ANE.PACU2 ---
Inpatient post-anesthesia follow up: Airway intact: Yes Vital signs: Temperature 98.2 F Pulse Rate 71 Respiratory Rate 14 Blood Pressure 108/70 Pulse Oximetry 99 Oxygen Delivery Me thod Room Air Oxygen Flow Rate 10 Fraction of Inspir ed Oxygen Hydration adequate: Yes Nausea and vomiting: No Pain level: 1 Mental status: Baseline Epidural Start/End: Epidural Start Date: 05/29/24 Epidural Start Time: 14:39 Epidural End Date: 05/29/24 Epidural End Time: 19:27
[2024-05-30 18:51] VITALS: BP 110/78; PULSE 70; RESP 16; TEMP 36.7
[2024-05-30 19:37] VITALS: BP 128/76; PULSE 71; RESP 16; TEMP 36.7; O2SAT 97
== END 2024-05-30 19:44 | disposition home or self-care (01) | DRG 807 ==
LOC: OPOB 08:27 → OBGYN 08:27
PROVIDERS: Obstetrics & Gynecology; Admitting Provider Obstetrics & Gynecology; Visit Provider Obstetrics & Gynecology
DX: O99.824 Streptococcus B carrier state complicating childbirth (principal); Z37.0 Single live birth; O76 Abnormality in fetal heart rate and rhythm complicating labor and delivery; Z3A.39 39 weeks gestation of pregnancy
CPT/HCPCS: 36415; 51702; 59025; 59409; 85025; 85027; 86850; 86900; 96374; 96376; J0290; J2590; J2795; J3010; J7120; J7121

== ENCOUNTER → 2024-08-13 16:03 | Outpatient (BNVA) | payer MEDICAID, SELFPAY | PROVIDERS: Visit Provider Obstetrics & Gynecology | DX: O80 Encounter for full-term uncomplicated delivery (principal); R42 Dizziness and giddiness | CPT/HCPCS: 85025 ==